=== PATIENT | female | born 1950 | race Caucasian/White ===

== ENCOUNTER 2025-01-04 10:30 | Outpatient (AMB) | payer MEDICARE, SELFPAY ==
[2025-01-04 10:36] VITALS: BP 140/66; PULSE 76; RESP 20; TEMP 37.3; O2SAT 98; BMI 32.0
--- NOTE | 2025-01-04 10:36 | MHC.PC.OV ---
Vital Signs 01/04/25 10:36 Height 5 ft 1.14 in Weight 170 lb 6.4 oz BMI 32.0 BP 140/66 H Blood Pressure Location Lt brachial Position Sitting Respiration 20 Pulse 76 Pulse Source Pulse Oximeter Temp 99.1 F Temp Source Oral Pulse Oximetry (%) 98 Oxygen Delivery Method Room Air Intake Visit Reasons: establish care HTN, cholesterol, thyroid Intake Note: Patient is a new patient here to establish care. Pt has medical records in-hand, from previous PCP. Cigar Head Puncher Required: No Accompanied by: Self / Same As Patient Allergies No Known Allergies Allergy (Verified 01/04/25 11:10) Medication List - Last Reconciled 01/04/25 by MARIA ISABEL Au alendronate 70 mg PO QWEEK hydrochlorothiazide 12.5 mg PO Q OTHER DAY losartan 50 mg PO DAILY rosuvastatin 40 mg PO DAILY Tobacco use date assessed: 01/04/25 Fall risk assessment: 1 Fall in past year Last assessed Fall Risk: 01/04/25 Dental Screening Dental Screen Date: 01/04/25 Did you have a dental visit in the last 12 months?: Yes Did you have a dental problem in the last 6 months where you did not have access to dental care?: No Was dental information given to patient?: Patient has dentist HPI establish care HTN, cholesterol, thyroid HPI Details The patient is a 74 year old female presenting to establish care Patient moved from [place] couple of months ago and needs to be connected with new providers Previous PCP: Dr. Mandy Shepherd Last visit: 2022-summer Last PE: Specialist: Endocrinology, rheumaologist OBGYN: Past medical history: osteoporosis (knees are hurting) lateral epicondylitis,left elbow, polyosteoarthrisit, familial hypercholesterolemia, Essential primary hypertension, hx right hip replacement Medications: Family HX: Mother (rheumatoid arthritis) father (HTN) Problem: The patient reports Bilateral Thyroid nodules-reports 1-2 years US with fine needle aspiration will refer to endocrinology The patient has history of osteoporosis and is on alendronate 70 mg p.o. q.week Her next DEXA scan is due after 04/07/2025 Colonoscopy was completed 2022-reports that she was told that she does not need to complete this again, similarly, she had her last Pap smear and mammogram done in 2022 History of polyosteoarthritis- complaints of left thumb, bilateral knee pain depending on the day. Reports that she had steroids shot in her left wrist before. She currently has been taking one extra strength Tylenol intermittently. Reports trying lidocaine without any relief. Denies chest pain, shortness of breath, heart palpitation, dizziness or lightheadedness Denies any change in bowel habits or any urinary symptoms PFSH Medical History (Updated 01/07/25 @ 19:03 by MARIA ISABEL Au) Polyarticular osteoarthritis High cholesterol Age related osteoporosis Essential (primary) hypertension Surgical History (Updated 01/04/25 @ 11:51 by MARIA ISABEL Au) H/O hammer toe correction H/O carpal tunnel repair H/O cataract removal with insertion of prosthetic lens H/O myomectomy H/O parathyroidectomy History of right hip replacement Family History (Updated 01/04/25 @ 11:00 by Samreen Gibson [facility]) Mother Rheumatoid arthritis Hypotension Father Hypertension Myocardial infarction Social History Household Members Other:: Adopted [facility] Are you a primary rn care transition to a significant other at home: Yes Do you presently have visiting nurse or other home services: No 75 years or older and lives alone: No Alcohol intake: never Patient Tobacco Use Status: Never used Tobacco e-Cigarette/Vaping Use: Never Used service: No Current occupational status: retired Cognitive needs: No Hearing needs: No Vision needs: Yes Questionnaire PHQ-9 Over the last 2 weeks, how often have you been bothered by any of the following problems? 1. Little interest or pleasure in doing things: not at all 2. Feeling down, depressed, or hopeless: not at all 3. Trouble falling or staying asleep, or sleeping too much: not at all 4. Feeling tired or having little energy: not at all 5. Poor appetite or overeating: not at all 6. Feeling bad about yourself - or that you are a failure or have let yourself or your family down: not at all 7. Trouble concentrating on things, such as reading the newspaper or watching television: not at all 8. Moving or speaking so slowly that other people could have noticed. Or the opposite - being so fidgety or restless that you have been moving around a lot more than usual: not at all 9. Thoughts that you would be better off or of hurting yourself in some way: not at all Total score: 0 Depression Screening Interpretation: Negative Depression Screening Done: Yes 98939 - PHQ-9 Billing: Yes Source: Developed by Drs. Zane oSsa, Lucretia Sierra, Ruddy López and colleagues, with an educational dolores from [employer]. Thrive Questionnaire Date Thrive assessed: 01/04/25 I am a: Patient What is your living situation today?: I have a steady place to live Within the past 12 months, did the food you bought not last and you didn't have the money to get more?: Never true Within the past 12 months, did you worry whether your food would run out before you got money to buy more?: Never true Do you have trouble paying for medicines?: No Do you have trouble getting transportation to medical appointments?: No Do you have trouble paying your heating and electricity bill?: No Do you have trouble taking care of your child, family member or friend?: I choose not to answer this question Do you have trouble with day-to-day activities such as bathing, preparing meals, shopping, managing finances, etc.?: No Are you currently unemployed and looking for a job?: No Are you interested in more education?: No Please select the resources that you would like help with: Transportation and Care for elder or disabled Currently or been in a relationship where the following occur: No concerns reported THRIVE Score: 0 AUDIT C Alcohol Use Questionnaire (AUDIT-C) 1. How often do you have a drink containing alcohol?: Never 3. How often do you have six or more drinks on one occasion?: Never Total Score: 0 JOSE-7 AMB Questionnaire JOSE-7 Date JOSE - 7 assessed: 01/04/25 Feeling nervous, anxious, or on edge: 0 = Not at all Not being able to stop or control worryin = Not at all Worrying too much about different things: 0 = Not at all Trouble relaxin = Not at all Being so restless that it is hard to sit still: 0 = Not at all Becoming easily annoyed or irritable: 0 = Not at all Feeling afraid as if something awful might happen: 0 = Not at all Total JOSE-7 score (0-4 normal; 5-9 mild; 10-14 moderate; 15-21 severe): 0 Source: Developed by Drs. Znae Sosa, Lucretia Sierra, Ruddy López and colleagues, with an educational dolores from [employer]. JOSE-7 Assessment Billing JOSE-7 Assessment Tool: JOSE-7 Assessment 02224 Review of Systems Const Denies headache(s) Eyes Denies loss of vision ENT Denies vertigo, Denies dizziness, Denies headache(s) and Denies sore throat Card Denies chest pain, Denies leg edema and Denies lightheadedness Resp Denies cough, Denies hemoptysis and Denies wheezing GI Denies abdominal pain, Denies melena, Denies constipation, Denies diarrhea and Denies vomiting Denies urinary frequency, Denies dysuria and Denies urinary urgency Musc Reports arthralgias (Bilateral knee, left risk and thumb, left elbow), Reports joint swelling (mild swelling in finger joints), Reports muscle cramps (right upper thigh), Denies numbness and Denies tingling Neuro Denies Abnormal speech present, Denies behavioral changes, Denies vertigo, Denies dizziness, Denies headache(s), Denies loss of vision, Denies memory loss, Denies numbness and Denies tingling Psych Denies anxiety, Denies behavioral changes, Denies depression, Denies memory loss and Denies panic attacks Anurag/Lymph Denies easy bleeding and Denies easy bruising Aller/Immun Denies wheezing Physical exam (Primary Care) Vital Signs: Last Vital Signs Temp 99.1 F 01/04/25 10:36 Pulse 76 01/04/25 10:36 Resp 20 01/04/25 10:36 BP 140/66 H 01/04/25 10:36 Pulse Ox 98 01/04/25 10:36 Oxygen Delivery Method Room Air 01/04/25 10:36 BMI result Body Mass Index 32.0 Tobacco/Smoking Status: Tobacco use Status Tobacco use date assessed 01/04/25 01/04/25 11:05 Patient Tobacco Use Status Never used Tobacco 01/04/25 11:05 e-Cigarette/Vaping Use Never Used 01/04/25 11:05 PHQ-9: PHQ-9 Score PHQ-9: Total score 0 01/04/25 11:17 Depression Screening Interpretation: Negative Thrive Assessment: Date of Thrive Assessment Date Thrive assessed 01/04/25 01/04/25 11:05 Currently or been in a relationship where the following occur: No concerns reported Const General: healthy appearing, no acute distress, alert and awake Nutritional Appearance: well nourished Orientation/consciousness: oriented to person, oriented to place and oriented to time HENMT Ears: TM's normal bilaterally General nose exam: Normal nasal mucous membranes and turbinates present Eyes Conjunctivae: conjunctivae normal Sclerae: sclerae normal Pupils: Equal, round and reactive pupils present Neck Neck: Yes no lymphadenopathy and Yes no JVD Thyroid: Thyroid normal Carotids: no bruits Resp Effort & Inspection: normal respiratory effort and not tachypneic Auscultation: no crackles, no rales, no rhonchi and no wheezes Cardio Rate: regular rate Rhythm: regular rhythm Heart sounds: no murmurs and normal S1 and S2 GI Palpation (GI): Soft to palpation, nontender, no hepatomegaly and no splenomegaly Auscultation: normal bowel sounds General: Yes no CVA tenderness Back/Spine/Pelvis Back: no CVA tenderness Cervical Spine: No cervical ROM normal Thoracic/Lumbar Spine: No thoracic spinal tenderness and No lumbar spinal tenderness Skin General skin exam: no rashes or lesions noted and dry skin Neuro General: oriented to person, oriented to place and oriented to time Cranial nerves: Yes Equal, round and reactive pupils present Speech: No Abnormal speech present Gait exam (Neuro): Normal gait present Motor exam (neuro): no tremor noted Extrem General: Yes capillary refill normal, Yes no pedal edema and Yes no calf tenderness Right upper extremity: full ROM Left upper extremity: full ROM and elbow/forearm (left elbow tenderness) Right lower extremity: full ROM and knee Details: normal ROM; no tenderness and no swelling; no edema Left lower extremity: full ROM and knee Details: normal ROM; no tenderness and no swelling; no edema Psych Mental Status: mental status grossly normal Speech and movement: Normal speech and movement present Affect: normal affect Attitude: cooperative Thought process: Normal thought process present Coding Level of Care Code New Pt Level 4 (96897) Diagnoses Thyroid nodule E04.1 Essential (primary) hypertension I10 Age-related osteoporosis without current pathological fracture M81.0 Presence of current pathological fracture: without current pathological fracture Polyarticular osteoarthritis M15.9 Additional Codes JOSE-7 Assessment Billing - JOSE-7 Assessment Tool: JOSE-7 Assessment 98322 ([id number]) PHQ-9 - 81133 - PHQ-9 Billing: Yes ([id number]) Time Spent (min) 39 Assessment & Plan Assessment & Plan (1) Thyroid nodule: Code(s): E04.1 - Nontoxic single thyroid nodule Category: Medical Plan: The patient reports Bilateral Thyroid nodules-reports 1-2 years US with fine needle aspiration will refer to endocrinology (2) Essential (primary) hypertension: Code(s): I10 - Essential (primary) hypertension Category: Medical Plan: Encouraged DASH diet and activity as tolerated Continue hydrochlorothiazide 12.5 mg Q other day, losartan 50 mg daily (3) Age related osteoporosis: Code(s): M81.0 - Age-related osteoporosis without current pathological fracture Category: Medical Qualifiers: Presence of current pathological fracture: without current pathological fracture Qualified Code(s): M81.0 - Age-related osteoporosis without current pathological fracture Plan: Maintain weight-bearing exercise (e.g., walking at least 30 min 3 times a weak); consider resistance training 2 times a weak Avoid excess phosphate (e.g., carbonated beverages) Prevention of falls Daily probiotic supplement (lactobacillus reuteri) can decrease bone loss) Continue alendronate 70 mg q.week (4) Polyarticular osteoarthritis: Code(s): M15.9 - Polyosteoarthritis, unspecified Category: Medical Plan: Set realistic goals (e.g., start walking 10 min 3 times a wk with eventual goal to be 30 min 3 times a wk Weight loss of at 10%, if indicated Rest joint 12 to 24 hr with acute pain, then resume ROM and exercise (especially aquatic exercise) Consider PT for suggestion of specific aerobic and strengthening exercises and OT for help with ADLs May use of items such as cane, knee brace, thumb splint Continue Tylenol OTC PRN Orders: Orders Lipid Panel 01/04/25 E04.1 - Nontoxic single thyroid nodule, E78.00 - Pure hypercholesterolemia, unspecified, I10 - Essential (primary) hypertension, M81.0 - Age-related osteoporosis without current pathological fracture, R12 - Heartburn Complete Blood Count Auto Diff 01/04/25 E04.1 - Nontoxic single thyroid nodule, E78.00 - Pure hypercholesterolemia, unspecified, I10 - Essential (primary) hypertension, M81.0 - Age-related osteoporosis without current pathological fracture, R12 - Heartburn Comprehensive [place]. Panel Fast 01/04/25 E04.1 - Nontoxic single thyroid nodule, E78.00 - Pure hypercholesterolemia, unspecified, I10 - Essential (primary) hypertension, M81.0 - Age-related osteoporosis without current pathological fracture, R12 - Heartburn Vitamin D 25-OH Total 01/04/25 E04.1 - Nontoxic single thyroid nodule, E78.00 - Pure hypercholesterolemia, unspecified, I10 - Essential (primary) hypertension, M81.0 - Age-related osteoporosis without current pathological fracture, R12 - Heartburn UA CC w/rflx Micro + Cult 01/04/25 E04.1 - Nontoxic single thyroid nodule, E78.00 - Pure hypercholesterolemia, unspecified, I10 - Essential (primary) hypertension, M81.0 - Age-related osteoporosis without current pathological fracture, R12 - Heartburn TSH reflex Free T4 01/04/25 E04.1 - Nontoxic single thyroid nodule, E78.00 - Pure hypercholesterolemia, unspecified, I10 - Essential (primary) hypertension, M81.0 - Age-related osteoporosis without current pathological fracture, R12 - Heartburn Medications: New losartan 50 mg PO DAILY 30 days 30 tabs 3RF hydrochlorothiazide 12.5 mg PO Q OTHER DAY 30 days 15 tabs 3RF omeprazole 20 mg PO DAILY 60 caps 0RF R12 - Heartburn alendronate 70 mg PO QWEEK 30 days 5 tabs 3RF M81.0 - Age-related osteoporosis without current pathological fracture
== END 2025-01-04 12:00 | disposition home or self-care (01) ==
LOC: HO.HMCH 10:31
DX: E04.1 Nontoxic single thyroid nodule (principal); I10 Essential (primary) hypertension; M81.0 Age-related osteoporosis without current pathological fracture; M15.9 Polyosteoarthritis, unspecified

== ENCOUNTER → 2025-01-04 10:30 | Outpatient (BNVA) | payer MEDICARE, SELFPAY | DX: E04.1 Nontoxic single thyroid nodule (principal); I10 Essential (primary) hypertension; M81.0 Age-related osteoporosis without current pathological fracture; M15.9 Polyosteoarthritis, unspecified | CPT/HCPCS: 96127; 99202 ==

== ENCOUNTER 2025-02-10 09:57 | Outpatient (REF) | payer MEDICARE, SELFPAY ==
[2025-02-10 12:16] LABS: Free T4 (Free Thyroxine) 0.99 ng/dL (0.71-1.85); Thyroid Stimulating Hormone 0.87 uIU/mL (0.32-4.0)
== END 2025-02-10 09:58 | disposition home or self-care (01) ==
LOC: HO.LAB 09:57
PROVIDERS: Visit Provider Student in an Organized Health Care Education/Training Program
DX: E04.2 Nontoxic multinodular goiter (principal)
CPT/HCPCS: 36415; 84439; 84443; 99202

== ENCOUNTER 2025-02-10 09:57 | Outpatient (AMB) | payer MEDICARE, SELFPAY ==
[2025-02-10 10:01] VITALS: BP 138/68; PULSE 77; O2SAT 98; BMI 32.5
--- NOTE | 2025-02-10 10:01 | MHC.OFFVIS ---
Vital Signs 02/10/25 10:01 Height 5 ft 1.14 in Weight 172 lb 13.478 oz BMI 32.5 BP 138/68 Blood Pressure Location Rt brachial Position Sitting Pulse 77 Pulse Source Pulse Oximeter Pulse Oximetry (%) 98 Oxygen Delivery Method Room Air Intake Visit Reasons: Nontoxic single thyroid nodule Intake Note: New patient present today for Nontoxic single thyroid nodule. Devops Solutions Architect Required: No Accompanied by: Self / Same As Patient Allergies No Known Allergies Allergy (Verified 02/10/25 10:05) Medication List - Last Reconciled 02/10/25 by Sara Hernandez MD alendronate 70 mg PO QWEEK 30 days hydrochlorothiazide 12.5 mg PO Q OTHER DAY 30 days losartan 50 mg PO DAILY 30 days omeprazole 20 mg PO DAILY rosuvastatin 40 mg PO DAILY 90 days HPI Comments Details: 74-year-old female here today for initial evaluation of history of nontoxic multinodular goiter. Moved here from [place] Oct 18, now settled here. Has history of thyroid nodules diagnosed in 2017 at the time that she was undergoing evaluation for hyperparathyroidism and s/p lower right parathyroid gland resection 08/2018. Labs patient brought in from [facility] from 2023 showed normal calcium levels and she is seeing PCP for osteoporosis, on fosamax. For the thyroid nodules, she has been monitored with surveillance US . Was following with Endocrinology in [facility] thyroid report reviewed from : RUP 1.3x0.8x0.9 cm solid hypoechoic nodule with echogenic foci RMP 0.5 x 0.3 x 0.5 cm solid hypoechoic nodule RLP 0.6 x 0.4 x 0.6 cm solid hypoechoic nodule LMP 2.9 x 1.5 x 1.9 cm heterogenous nodule with cystic components. 08/25/23 FNA biopsy of the LLP 3.4 cm nodule and RUP 1.1 cm nodule both benign Gibson 2. Patient currently denies heat or cold intolerance, diarrhea or constipation, hair loss, palpitation, anxiety, weight changes, mood changes, low energy, changes in appearance of eyes or vision changes, tremors, increased diaphoresis or dry skin. ? Patient denies any difficulty swallowing, pain on swallowing or voice changes or difficulty breathing. Patient denies any history of childhood neck radiation. Denies having ever used lithium, amiodarone or biotin supplements. Patient denies any family history of thyroid cancer. Mother : history of MNG Physical exam General: sitting comfortably in no acute distress HEENT: normocephalic/atraumatic, EOM intact, moist oral mucosa Neck: supple, palpable 2 cm left sided nodule Cardiac: normal heart sounds Pulm: normal breath sounds B/L, no added breath sounds Abd: not distended, no tenderness Extremities: no edema, no signs of myxedema Neuro: AAO x3, Speech: normal, no facial droop, moving all 4 extremities Patient brought in reports from [place] for review in print Info deducted US thyroid report reviewed from : RUP 1.3x0.8x0.9 cm solid hypoechoic nodule with echogenic foci RMP 0.5 x 0.3 x 0.5 cm solid hypoechoic nodule RLP 0.6 x 0.4 x 0.6 cm solid hypoechoic nodule LMP 2.9 x 1.5 x 1.9 cm heterogenous nodule with cystic components. 08/25/23 FNA biopsy report of the LLP 3.4 cm nodule and RUP 1.1 cm nodule both benign Gibson 2. [facility] Medical History (Updated 02/10/25 @ 10:36 by Sara Hernandez MD) Multinodular goiter Polyarticular osteoarthritis High cholesterol Age related osteoporosis Essential (primary) hypertension Surgical History H/O hammer toe correction H/O carpal tunnel repair H/O cataract removal with insertion of prosthetic lens H/O myomectomy H/O parathyroidectomy History of right hip replacement Family History Mother Rheumatoid arthritis Hypotension Father Hypertension Myocardial infarction Social History Household Members Other:: Adopted Son Housing: Condominium Are you a primary childcare worker to a significant other at home: Yes Do you presently have visiting nurse or other home services: No 75 years or older and lives alone: No Alcohol intake: never Patient Tobacco Use Status: Never used Tobacco e-Cigarette/Vaping Use: Never Used service: No Current occupational status: retired Cognitive needs: No Hearing needs: No Vision needs: Yes Physical Exam Vital Signs: Last Vital Signs Pulse 77 02/10/25 10:01 BP 138/68 02/10/25 10:01 Pulse Ox 98 02/10/25 10:01 Oxygen Delivery Method Room Air 02/10/25 10:01 BMI result Body Mass Index 32.5 Assessment & Plan Assessment & Plan (1) Multinodular goiter: Code(s): E04.2 - Nontoxic multinodular goiter Category: Medical Plan: 74-year-old female with no personal history of head or neck radiation with a family history of thyroid cancer who is coming in today for initial evaluation of nontoxic multinodular goiter. She was diagnosed with thyroid nodules in 2017 when she was undergoing evaluation for hyperparathyroidism status post right inferior parathyroid gland resection in August 2018. Subsequently thyroid nodules have been monitored with surveillance ultrasounds. She brought in her most recent thyroid ultrasound report from June 2023, I reviewed the report which showed a right upper pole 1.3 cm solid hypoechoic TR 5 category nodule with punctate echogenic foci , a right midpole subcentimeter solid hypoechoic nodule another right lower pole subcentimeter solid hypoechoic nodule, and a left midpole heterogenous nodule with cystic components measuring 2.9 next 1.5 X1.9 cm. She underwent FNA biopsy in July 2023 of the left mid/lower pole 3.4 cm nodule in the right upper pole 1.1 cm nodule which both came back as benign, Gibson category 2. She is here today to establish care. No compressive symptoms. No recent TFTs in the chart. I explained that it is common to have thyroid nodules. About 95% of the time these nodules are benign. However if the nodule is > 1 cm in size or suspicious on ultrasound then a fine need aspiration biopsy is recommended. At this point we will repeat an ultrasound of her thyroid in follow up with her to discuss results to see if any of her previous nodules have undergone significant change in size and meet criteria for FNA. Otherwise we will continue to do surveillance ultrasounds. Plan: -ordered TSH and free T4 to be done today -ordered ultrasound of the thyroid to be done prior to follow up -follow up in 6 weeks to discuss results Plan I spent 45 minutes in reviewing the record, seeing the patient and documenting in the medical record. Orders: Orders US thyroid Today E04.2 - Nontoxic multinodular goiter Free T4 (Free Thyroxine) Today E04.2 - Nontoxic multinodular goiter Thyroid Stimulating Hormone Today E04.2 - Nontoxic multinodular goiter Patient Instructions: Do blood work today Do ultrasound of the thyroid ,someone will call you to schedule this Follow up in 6 weeks to discuss results Coding Level of Care Code New Pt Level 4 (86207) Diagnoses Multinodular goiter E04.2 Time Spent (min) 45
== END 2025-02-10 10:46 | disposition home or self-care (01) ==
LOC: HO.ENCR 09:58
PROVIDERS: Visit Provider Student in an Organized Health Care Education/Training Program
DX: E04.2 Nontoxic multinodular goiter (principal)
CPT/HCPCS: 99204

== ENCOUNTER 2025-03-23 09:39 | Outpatient (REF) | payer MEDICARE, SELFPAY ==
[2025-03-23 10:00] LABS: MANUAL DIFF FLAG NO
[2025-03-23 10:17] LABS: Basophils Absolute Auto 0.1 X10*3/uL (0.0-0.2); Basophils Percent Auto 0.8 % (0-2); Eosinophils Absolute Auto 0.3 X10*3/uL (0.0-0.4); Eosinophils Percent Auto 4.2 % (0-4); Hematocrit 43.7 % (37.0-47.0); Hemoglobin 14.4 g/dl (12.0-16.0); Imm Gran Abs Auto 0.02 X10*3/uL (0.00-0.03); Imm Gran Pct Auto 0.3 % (0.0-0.4); Lymphocytes Percent Auto 25.6 % (20-40); Mean Corpuscular Hemoglobin 29.4 pg (27.0-33.0); Mean Corpuscular Volume 89.2 fL (80.0-98.0); Mean Platelet Volume 9.9 fL (9.4-12.3); Monocytes Absolute Auto 0.5 X10*3/uL (0.1-1.2); Monocytes Percent Auto 6.5 % (2-11); Neutrophils Absolute Auto 4.8 x10*3/uL (2.0-8.3); Neutrophils Percent Auto 62.6 % (45-73); Platelet Count 258 X10*3/uL (160-400); White Blood Count 7.7 X10*3/uL (4.8-10.8)
[2025-03-23 10:57] LABS: Alanine Aminotransferase 22 U/L (0-31); Albumin Level 4.3 g/dL (3.5-5.0); Alkaline Phosphatase 40 U/L (39-117); Anion Gap 14 (12-20); Aspartate Amino Transferase 27 U/L (5-31); Bilirubin Total 0.9 mg/dL (0.0-1.0); Blood Urea Nitrogen 18 mg/dL (9-16); Calcium 10.2 mg/dL (8.4-10.2); Carbon Dioxide 25 mmol/L (22-29); Chloride 107 mmol/L (96-108); Cholesterol 184 mg/dL (<200); Estimated Glomerular Filt Rate > 60; Glucose Fasting 102 mg/dL (60-99); HDL Cholesterol 56 mg/dL (>40); LDL Cholesterol Calculated 112 mg/dL (<100); Potassium 4.2 mmol/L (3.3-5.1); Sodium 142 mmol/L (135-145); Total Protein 6.9 g/dL (6.5-8.0); Triglycerides 83 mg/dL (<150)
[2025-03-23 11:03] LABS: TSH reflex Free T4 0.65 uIU/mL (0.32-4.0); Vitamin D 25-OH Total 40.5 ng/mL (>30)
== END 2025-03-23 09:40 | disposition home or self-care (01) ==
LOC: HO.LAB 09:39
DX: E04.1 Nontoxic single thyroid nodule (principal); I10 Essential (primary) hypertension; M81.0 Age-related osteoporosis without current pathological fracture; R12 Heartburn; E78.00 Pure hypercholesterolemia, unspecified
CPT/HCPCS: 36415; 80053; 80061; 82306; 84443; 85025

== ENCOUNTER 2025-03-24 12:44 | Outpatient (REF) | payer MEDICARE, SELFPAY ==
[2025-03-24 12:52] LABS: Appearance Urine Clear; Color Urine Yellow; Glucose Urine UA Negative (Negative); Leukocyte Esterase Urine Large (3+) (Negative); Nitrite Urine Positive (Negative); Specific Gravity - Urine 1.015 (1.005-1.025); UMIC TRIGGER UACC YES; Urine Blood Negative (Negative); Urine Ketones Negative (Negative); Urine Protein Negative (Neg-Trace)
[2025-03-24 12:58] LABS: Bacteria Urine 4+ (None Seen); Hyaline Casts Urine 0-2 /LPF (0-2); RBC Urine 0-2 /HPF (0-2); Squamous Epithelial Cell Urine 0-2 /HPF (0-2); UACC Culture Trigger YES; WBC Urine >50 /HPF (0-5)
== END 2025-03-24 12:45 | disposition home or self-care (01) ==
LOC: HO.LNP 12:44
DX: I10 Essential (primary) hypertension (principal); E04.2 Nontoxic multinodular goiter; M15.9 Polyosteoarthritis, unspecified; Z98.890 Other specified postprocedural states; Z90.89 Acquired absence of other organs; E78.00 Pure hypercholesterolemia, unspecified; M81.0 Age-related osteoporosis without current pathological fracture; R12 Heartburn
CPT/HCPCS: 81001; 87086; 87088; 87186

== ENCOUNTER 2025-04-03 12:37 | Outpatient (REF) | payer MEDICARE, SELFPAY ==
--- NOTE | ~2025-04-03 | US_ITS ---
EXAMINATION: US THYROID HISTORY: E04.2 - Nontoxic multinodular goiter TECHNIQUE: Real-time grayscale ultrasound imaging was performed and images were reviewed. COMPARISON: There are no prior studies available for comparison. FINDINGS: SIZE: The right thyroid lobe measures 4.1 x 1.5 x 1.6 cm. The left thyroid lobe measures 4.6 x 2.3 x 2.6 cm. The isthmus measures 3 mm. FLOW: Flow to the gland is normal. ECHOGENICITY: The echotexture of the gland is heterogeneous. NODULES: Multiple bilateral thyroid nodules are identified as described below: Nodule #: 1 Location: Upper pole of the right thyroid lobe measuring 1.3 x 1.0 x 0.8 cm. Shape: Wider than tall (0 points) Margins: Smooth (0 points) Echotexture: Hypoechoic (2 points) Composition: Mostly solid (2 points) Calcifications: Rim calcification (2 points) Total points: 6 TIRADS: TR4: Moderately suspicious. Nodule #: 2 Location: Midportion of the right thyroid lobe measuring 5 x 3 x 5 mm. Shape: Wider than tall (0 points) Margins: Smooth (0 points) Echotexture: Hypoechoic (2 points) Composition: Mostly solid (2 points) Calcifications: None (0 points) Total points: 4 TIRADS: TR4: Moderately suspicious. Nodule #: 3 Location: Lower pole of the right thyroid lobe measuring 6 x 4 x 5 mm. Shape: Wider than tall (0 points) Margins: Smooth (0 points) Echotexture: Hypoechoic (2 points) Composition: Solid (2 points) Calcifications: None (0 points) Total points: 4 TIRADS: TR4: Moderately suspicious. Nodule #: 4 Location: Lower pole of the left thyroid lobe measuring 2.9 x 1.5 x 1.9 cm. Shape: Wider than tall (0 points) Margins: Smooth (0 points) Echotexture: Hypoechoic (2 points) Composition: Mostly solid (2 points) Calcifications: None (0 points) Total points: 4 TIRADS: TR4: Moderately suspicious. US/US thyroid IMPRESSION: Multiple bilateral thyroid nodules as described. According to ACR TI-RADS guidelines below, fine-needle aspiration of the dominant nodule at the lower pole of the left thyroid lobe (#4 above) is recommended. ACR TI-RADS Guidelines TR1 (0 points): Benign, No follow-up or biopsy required TR2 (2 points): Not Suspicious, No biopsy or follow up indicated TR3 (3 points): Mildly Suspicious, FNA if >= 2.5 cm, Follow if >= 1.5 cm TR4 (4-6 points): Moderately Suspicious, FNA if >= 1.5 cm, Follow if >= 1.0 cm TR5 (>=7 points): Highly Suspicious, FNA if >= 1.0 cm, Follow if >= 0.5 cm Electronically signed by: Zane Altamirano MD 04/03/2025 02:12 PM EDT
== END 2025-04-03 12:38 | disposition home or self-care (01) ==
LOC: HO.US 12:37
PROVIDERS: Visit Provider Student in an Organized Health Care Education/Training Program
DX: E04.2 Nontoxic multinodular goiter (principal)
CPT/HCPCS: 76536

== ENCOUNTER → 2025-04-03 12:40 | Outpatient (BNV) | payer MEDICARE, SELFPAY | PROVIDERS: Visit Provider Radiology Diagnostic Radiology | DX: E04.2 Nontoxic multinodular goiter (principal) | CPT/HCPCS: 76536 ==

== ENCOUNTER 2025-04-06 09:45 | Outpatient (AMB) | payer MEDICARE, SELFPAY ==
[2025-04-06 09:55] VITALS: BP 124/70; PULSE 75; RESP 18; TEMP 37.1; O2SAT 98; BMI 32.2
--- NOTE | 2025-04-06 09:55 | MHC.PC.OV ---
Vital Signs 04/06/25 09:55 Height 5 ft 1 in Weight 170 lb 3.2 oz BMI 32.2 BP 124/70 Blood Pressure Location Lt brachial Position Sitting Respiration 18 Pulse 75 Pulse Source Pulse Oximeter Temp 98.8 F Temp Source Oral Pulse Oximetry (%) 98 Oxygen Delivery Method Room Air Intake Visit Reasons: htn/hld Pari Mutuel Clerk Required: No Accompanied by: Self / Same As Patient Allergies No Known Allergies Allergy (Verified 04/06/25 10:23) Medication List - Last Reconciled 04/06/25 by MARIA ISABEL Au alendronate 70 mg PO QWEEK 30 days hydrochlorothiazide 12.5 mg PO Q OTHER DAY 30 days losartan 50 mg PO DAILY 30 days omeprazole 20 mg PO DAILY PRN rosuvastatin 40 mg PO DAILY 90 days Tobacco use date assessed: 04/06/25 Fall risk assessment: 1 Fall in past year Last assessed Fall Risk: 04/06/25 Dental Screening Dental Screen Date: 04/06/25 Did you have a dental visit in the last 12 months?: Yes Did you have a dental problem in the last 6 months where you did not have access to dental care?: No Was dental information given to patient?: Yes HPI htn/hld HPI Details The patient is a 74-year-old female presenting with concerns regarding her ongoing chronic conditions and a recent fall. At the time of a routine lab test, she was found to have asymptomatic bacteriuria with E. coli, which was addressed with antibiotics, although she had no history or current urinary tract infection symptoms. She manages her hiatal hernia effectively with as-needed omeprazole and adheres to specific dietary restrictions to avoid triggers. She reports a slightly elevated cholesterol level, persistent for some time, with potential genetic links as her father also had hypercholesterolemia. The patient recognizes a link between stress and cholesterol, considering her recent move as a contributing factor. She is proactive in her health maintenance, drinking regular amounts of water and considering increasing her intake. Furthermore, the patient experiences urinary incontinence and is managing this with protective pads. The recent fall has caused concern for her right hip, which has a history of replacement surgery, as well as her right knee, both now experiencing discomfort. The fall was self-managed without medical intervention, and she seeks further evaluation. There is recognition of arthritis in multiple areas, including her thumb and knee, attributed to aging. DEXA scan is due in 03/2025, will order this test for pain. She is going to see her Habilitation Specialist in June, this information will be useful for her examination reports that her hip and knee hurts when she is put weight on them, but not with palpation no discoloration or swelling noted at either right hip or knee due to s/p fall-right hip and knee x-ray ordered to further evaluate no chest pain or sob, dizziness, or heart palpitation no abdominal/change in bowel habits mixed incontinence. reports that this has been going on for year. reports that in [place], they told her that she could have a surgery for this but she has been too busy to entertain the idea, so far. The patient requested a disability placard. 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 Do you presently have visiting nurse or other home services: No 75 years or older and lives alone: No Alcohol intake: never Patient Tobacco Use Status: Never used Tobacco e-Cigarette/Vaping Use: Never Used service: No Current occupational status: retired Cognitive needs: No Hearing needs: No Vision needs: Yes (Reading glasses) Questionnaire Thrive Questionnaire Date Thrive assessed: 04/06/25 I am a: Patient What is your living situation today?: I have a steady place to live Within the past 12 months, did the food you bought not last and you didn't have the money to get more?: Never true Within the past 12 months, did you worry whether your food would run out before you got money to buy more?: Never true Do you have trouble paying for medicines?: No Do you have trouble getting transportation to medical appointments?: No Do you have trouble paying your heating and electricity bill?: No Do you have trouble taking care of your child, family member or friend?: I choose not to answer this question Do you have trouble with day-to-day activities such as bathing, preparing meals, shopping, managing finances, etc.?: No Are you currently unemployed and looking for a job?: No Are you interested in more education?: No Currently or been in a relationship where the following occur: No concerns reported THRIVE Score: 0 AUDIT C Alcohol Use Questionnaire (AUDIT-C) 1. How often do you have a drink containing alcohol?: Never Total Score: 0 Score Reviewed/Action Taken: No JOSE-7 AMB Questionnaire OJSE-7 Date JOSE - 7 assessed: 01/04/25 Source: Developed by Drs. Zane Sosa, Lucretia Sierra, Ruddy López and colleagues, with an educational dolores from [employer]. Review of Systems Const Denies headache(s) Eyes Denies loss of vision ENT Denies vertigo, Denies dizziness, Denies headache(s) and Denies sore throat Card Denies chest pain, Denies leg edema and Denies lightheadedness Resp Denies cough, Denies hemoptysis and Denies wheezing GI Denies abdominal pain, Denies melena, Denies constipation, Denies diarrhea and Denies vomiting Denies urinary frequency, Denies dysuria, Reports urinary incontinence and Denies urinary urgency Musc Reports arthralgias (right hip and knee), Denies joint swelling, Denies numbness and Denies tingling Neuro Denies vertigo, Denies dizziness, Denies headache(s), Denies loss of vision, Denies memory loss, Denies numbness and Denies tingling Psych Denies anxiety, Denies depression, Denies memory loss and Denies panic attacks Anurag/Lymph Denies easy bleeding and Denies easy bruising Aller/Immun Denies wheezing Physical exam (Primary Care) Vital Signs: Last Vital Signs Temp 98.8 F 04/06/25 09:55 Pulse 75 04/06/25 09:55 Resp 18 04/06/25 09:55 BP 124/70 04/06/25 09:55 Pulse Ox 98 04/06/25 09:55 Oxygen Delivery Method Room Air 04/06/25 09:55 BMI result Body Mass Index 32.2 Tobacco/Smoking Status: Tobacco use Status Tobacco use date assessed 04/06/25 04/06/25 10:03 Patient Tobacco Use Status Never used Tobacco 04/06/25 10:03 e-Cigarette/Vaping Use Never Used 04/06/25 10:03 Thrive Assessment: Date of Thrive Assessment Date Thrive assessed 04/06/25 04/06/25 10:03 Currently or been in a relationship where the following occur: No concerns reported Const General: healthy appearing, no acute distress, alert and awake Nutritional Appearance: well nourished Orientation/consciousness: oriented to person, oriented to place and oriented to time HENMT Ears: TM's normal bilaterally General nose exam: Normal nasal mucous membranes and turbinates present Eyes Conjunctivae: conjunctivae normal Sclerae: sclerae normal Pupils: Equal, round and reactive pupils present Neck Neck: Yes no lymphadenopathy and Yes no JVD Thyroid: Thyroid normal Carotids: no bruits Resp Effort & Inspection: normal respiratory effort and not tachypneic Auscultation: no crackles, no rales, no rhonchi and no wheezes Cardio Rate: regular rate Rhythm: regular rhythm Heart sounds: no murmurs and normal S1 and S2 GI Palpation (GI): Soft to palpation, nontender, no hepatomegaly and no splenomegaly Auscultation: normal bowel sounds General: Yes no CVA tenderness Back/Spine/Pelvis Back: no CVA tenderness Thoracic/Lumbar Spine: No lumbar spinal tenderness Skin General skin exam: no rashes or lesions noted and dry skin Neuro General: oriented to person, oriented to place and oriented to time Cranial nerves: Yes Equal, round and reactive pupils present Gait exam (Neuro): Normal gait present Motor exam (neuro): no tremor noted Extrem Right upper extremity: full ROM Left upper extremity: full ROM Right lower extremity: full ROM, hip/thigh Details: no tenderness and no swelling and knee Details: no tenderness and no swelling; no edema Left lower extremity: full ROM; no edema Psych Mental Status: mental status grossly normal Speech and movement: Normal speech and movement present Affect: normal affect Attitude: cooperative Thought process: Normal thought process present Results Reviewed Results Reviewed: Laboratory Tests 02/10/25 03/23/25 03/24/25 11:13 09:58 05:55 WBC 7.7 RBC 4.90 Hgb 14.4 Hct 43.7 MCV 89.2 MCH 29.4 MCHC 33.0 RDW 13.0 Plt Count 258 MPV 9.9 Immature Gran % (Auto) 0.3 Sodium 142 Potassium 4.2 Chloride 107 Carbon Dioxide 25 Anion Gap 14 BUN 18 H Creatinine 0.66 Estimated GFR > 60 Fasting Glucose 102 H Calcium 10.2 Total Bilirubin 0.9 AST 27 ALT 22 Alkaline Phosphatase 40 Total Protein 6.9 Albumin 4.3 Triglycerides 83 Cholesterol 184 LDL Cholesterol, Calc 112 H HDL Cholesterol 56 25-OH Vitamin D Total 40.5 TSH 0.87 0.65 Free T4 0.99 Urine Color Yellow Urine Appearance Clear Urine pH 6.0 Ur Specific [place] 1.015 Urine Protein Negative Urine Glucose (UA) Negative Urine Ketones Negative Urine Blood Negative Urine Nitrite Positive H Ur Leukocyte Esterase Large (3+) H Urine RBC 0-2 Urine WBC >50 H Ur Squamous Epith Cells 0-2 Urine Bacteria 4+ Hyaline Casts 0-2 Coding Level of Care Code Est Pt Level 4 (88900) Diagnoses Essential (primary) hypertension I10 High cholesterol E78.00 Age-related osteoporosis without current pathological fracture M81.0 Presence of current pathological fracture: without current pathological fracture Heartburn R12 Right hip pain M25.551 Right knee pain, unspecified chronicity M25.561 Chronicity: unspecified Urinary tract infection without hematuria, site unspecified N39.0 Urinary tract infection type: site unspecified Hematuria presence: without hematuria Time Spent (min) 39 Assessment & Plan Assessment & Plan (1) Essential (primary) hypertension: Code(s): I10 - Essential (primary) hypertension Category: Medical Plan: Blood pressure 124/70 within goal Reinforced low-salt diet Continue hydrochlorothiazide 12.5 mg Q other day, losartan 50 mg daily (2) High cholesterol: Code(s): E78.00 - Pure hypercholesterolemia, unspecified Category: Medical Plan: Total 184, Tri 83, LDL 112, HDL 56 Reinforced low-cholesterol diet Continue rosuvastatin 40 mg daily Encouraged fish oil or Co Q10 supplements We will recheck lipid panel in 3 months (3) Age related osteoporosis: Code(s): M81.0 - Age-related osteoporosis without current pathological fracture Category: Medical Qualifiers: Presence of current pathological fracture: without current pathological fracture Qualified Code(s): M81.0 - Age-related osteoporosis without current pathological fracture Plan: Patient is due for DEXA scan in March of this year (2024). She has an upcoming appointment with Rheumatology in June,. Dexa scan ordered Continue alendronate 70 mg q.week (4) Heartburn: Code(s): R12 - Heartburn Category: Medical Plan: complicated by haital hernia Reinforced dietary restrictions, allowing yourself at least 3 hours after eating before lying down Continue omeprazole 20 mg daily p.r.n. (5) Right hip pain: Code(s): M25.551 - Pain in right hip Category: Medical Plan: Status post right knee replacement in [place] Recent fall and ongoing pain in right hip when bearing weight No pain to palpation, positive range of motion Right hip x-ray ordered to further evaluate handicap placard form filled out for patient (6) Right knee pain: Code(s): M25.561 - Pain in right knee Category: Medical Qualifiers: Chronicity: unspecified Qualified Code(s): M25.561 - Pain in right knee Plan: For right knee pain, history of osteoarthritis, however pain increased since fall. Right knee x-ray ordered to further evaluate. (7) UTI (urinary tract infection): Code(s): N39.0 - Urinary tract infection, site not specified Category: Medical Qualifiers: Urinary tract infection type: site unspecified Hematuria presence: without hematuria Qualified Code(s): N39.0 - Urinary tract infection, site not specified Plan: Urine positive for Escherichia coli recently and she was treated with Macrobid. Remains asymptomatic. Chronic urinary incontinence. Orders: Orders Complete Blood Count Auto Diff 3 Months E04.2 - Nontoxic multinodular goiter, M15.9 - Polyosteoarthritis, unspecified, Z98.890 - Other specified postprocedural states, Z90.89 - Acquired absence of other organs, E78.00 - Pure hypercholesterolemia, unspecified, E04.1 - Nontoxic single thyroid nodule, I10 - Essential (primary) hypertension, M81.0 - Age-related osteoporosis without current pathological fracture, R12 - Heartburn Lipid Panel 3 Months E04.2 - Nontoxic multinodular goiter, M15.9 - Polyosteoarthritis, unspecified, Z98.890 - Other specified postprocedural states, Z90.89 - Acquired absence of other organs, E78.00 - Pure hypercholesterolemia, unspecified, E04.1 - Nontoxic single thyroid nodule, I10 - Essential (primary) hypertension, M81.0 - Age-related osteoporosis without current pathological fracture, R12 - Heartburn TSH reflex Free T4 3 Months E04.2 - Nontoxic multinodular goiter, M15.9 - Polyosteoarthritis, unspecified, Z98.890 - Other specified postprocedural states, Z90.89 - Acquired absence of other organs, E78.00 - Pure hypercholesterolemia, unspecified, E04.1 - Nontoxic single thyroid nodule, I10 - Essential (primary) hypertension, M81.0 - Age-related osteoporosis without current pathological fracture, R12 - Heartburn Free T4 (Free Thyroxine) 3 Months E04.2 - Nontoxic multinodular goiter, M15.9 - Polyosteoarthritis, unspecified, Z98.890 - Other specified postprocedural states, Z90.89 - Acquired absence of other organs, E78.00 - Pure hypercholesterolemia, unspecified, E04.1 - Nontoxic single thyroid nodule, I10 - Essential (primary) hypertension, M81.0 - Age-related osteoporosis without current pathological fracture, R12 - Heartburn XR hip RT min 2V 12/ M25.551 - Pain in right hip Comprehensive [place]. Panel Fast 3 Months E04.2 - Nontoxic multinodular goiter, M15.9 - Polyosteoarthritis, unspecified, Z98.890 - Other specified postprocedural states, Z90.89 - Acquired absence of other organs, E78.00 - Pure hypercholesterolemia, unspecified, E04.1 - Nontoxic single thyroid nodule, I10 - Essential (primary) hypertension, M81.0 - Age-related osteoporosis without current pathological fracture, R12 - Heartburn UA CC w/rflx Micro + Cult 3 Months E04.2 - Nontoxic multinodular goiter, M15.9 - Polyosteoarthritis, unspecified, Z98.890 - Other specified postprocedural states, Z90.89 - Acquired absence of other organs, E78.00 - Pure hypercholesterolemia, unspecified, E04.1 - Nontoxic single thyroid nodule, I10 - Essential (primary) hypertension, M81.0 - Age-related osteoporosis without current pathological fracture, R12 - Heartburn Vitamin D 25-OH Total 3 Months E04.2 - Nontoxic multinodular goiter, M15.9 - Polyosteoarthritis, unspecified, Z98.890 - Other specified postprocedural states, Z90.89 - Acquired absence of other organs, E78.00 - Pure hypercholesterolemia, unspecified, E04.1 - Nontoxic single thyroid nodule, I10 - Essential (primary) hypertension, M81.0 - Age-related osteoporosis without current pathological fracture, R12 - Heartburn Hemoglobin A1c 3 Months E04.2 - Nontoxic multinodular goiter, M15.9 - Polyosteoarthritis, unspecified, Z98.890 - Other specified postprocedural states, Z90.89 - Acquired absence of other organs, E78.00 - Pure hypercholesterolemia, unspecified, E04.1 - Nontoxic single thyroid nodule, I10 - Essential (primary) hypertension, M81.0 - Age-related osteoporosis without current pathological fracture, R12 - Heartburn XR knee RT 3V 04/06/25 M25.561 - Pain in right knee Medications: Changed From omeprazole 20 mg PO DAILY 60 caps 0RF R12 - Heartburn To omeprazole 20 mg PO DAILY PRN R12 - Heartburn
== END 2025-04-06 10:58 | disposition home or self-care (01) ==
LOC: HO.HMCH 09:46
DX: I10 Essential (primary) hypertension (principal); E78.00 Pure hypercholesterolemia, unspecified; M81.0 Age-related osteoporosis without current pathological fracture; R12 Heartburn; M25.551 Pain in right hip; M25.561 Pain in right knee; N39.0 Urinary tract infection, site not specified

== ENCOUNTER → 2025-04-06 09:45 | Outpatient (BNVA) | payer MEDICARE, SELFPAY | DX: I10 Essential (primary) hypertension (principal); E78.00 Pure hypercholesterolemia, unspecified; M81.0 Age-related osteoporosis without current pathological fracture; R12 Heartburn; M25.551 Pain in right hip; M25.561 Pain in right knee; N39.0 Urinary tract infection, site not specified | CPT/HCPCS: 99212 ==

== ENCOUNTER 2025-04-25 08:51 | Outpatient (AMB) | payer MEDICARE, SELFPAY ==
[2025-04-25 08:54] VITALS: BP 174/64; PULSE 96; O2SAT 97; BMI 32.7
--- NOTE | 2025-04-25 08:54 | A.OFFVIS_ITS ---
Vital Signs 04/25/25 08:54 Height 5 ft 1 in Weight 173 lb 1.006 oz BMI 32.7 BP 174/64 H Blood Pressure Location Lt brachial Position Sitting Pulse 96 Pulse Source Pulse Oximeter Pulse Oximetry (%) 97 Oxygen Delivery Method Room Air Intake Visit Reasons: Multinodular goiter Intake Note: Patient present today for Multinodular goiter office visit. Bed Spring Maker Required: No Accompanied by: Self / Same As Patient Allergies No Known Allergies Allergy (Verified 04/25/25 08:59) Medication List - Last Reconciled 04/25/25 by Sara Hernandez MD alendronate 70 mg PO QWEEK 30 days hydrochlorothiazide 12.5 mg PO Q OTHER DAY 30 days losartan 50 mg PO DAILY 30 days omeprazole 20 mg PO DAILY PRN rosuvastatin 40 mg PO DAILY 90 days HPI Comments Details: 74-year-old female here today for follow up of nontoxic multinodular goiter. Moved here from [place] Oct 18, now settled here. Has history of thyroid nodules diagnosed in 2017 at the time that she was undergoing evaluation for hyperparathyroidism and s/p lower right parathyroid gland resection 08/2018. Labs patient brought in from [facility] from 2023 showed normal calcium levels and she is seeing PCP for osteoporosis, on fosamax. For the thyroid nodules, she has been monitored with surveillance US . Was following with Endocrinology in [facility] thyroid report reviewed from : RUP 1.3x0.8x0.9 cm solid hypoechoic nodule with echogenic foci RMP 0.5 x 0.3 x 0.5 cm solid hypoechoic nodule RLP 0.6 x 0.4 x 0.6 cm solid hypoechoic nodule LMP 2.9 x 1.5 x 1.9 cm heterogenous nodule with cystic components. 08/25/23 FNA biopsy of the LLP 3.4 cm nodule and RUP 1.1 cm nodule both benign [place] 2. Patient currently denies heat or cold intolerance, diarrhea or constipation, hair loss, palpitation, anxiety, weight changes, mood changes, low energy, changes in appearance of eyes or vision changes, tremors, increased diaphoresis or dry skin. ? Patient denies any difficulty swallowing, pain on swallowing or voice changes or difficulty breathing. Patient denies any history of childhood neck radiation. Denies having ever used lithium, amiodarone or biotin supplements. Patient denies any family history of thyroid cancer. Mother : history of MNG Interval history 04/25/2025 Normal TSH from February 2025 Ultrasound thyroid 04/03/2025, I reviewed the images myself which showed a right superior 1.3 cm solid hypoechoic nodule with rim calcification, TR 4 category, this has been biopsied before and was benign in 2022, subcentimeter right midpole and right lower pole nodules which are both TR 4 category, in the left lower pole 2.9 cm solid hypoechoic TR 4 nodule which was also biopsied back in 2022 and was benign and remains stable in size. Physical exam General: sitting comfortably in no acute distress HEENT: normocephalic/atraumatic, Neck: supple, palpable 2 cm left sided nodule Cardiac: normal heart sounds Pulm: normal breath sounds B/L, no added breath sounds Abd: not distended, no tenderness Extremities: no edema, no signs of myxedema Laboratory Tests 03/23/25 09:58 TSH 0.65 Patient brought in reports from [place] for review in print Info deducted US thyroid report reviewed from : RUP 1.3x0.8x0.9 cm solid hypoechoic nodule with echogenic foci RMP 0.5 x 0.3 x 0.5 cm solid hypoechoic nodule RLP 0.6 x 0.4 x 0.6 cm solid hypoechoic nodule LMP 2.9 x 1.5 x 1.9 cm heterogenous nodule with cystic components. 08/25/23 FNA biopsy report of the LLP 3.4 cm nodule and RUP 1.1 cm nodule both benign [place] 2. EXAMINATION: US THYROID 04/03/25 HISTORY: E04.2 - Nontoxic multinodular goiter TECHNIQUE: Real-time grayscale ultrasound imaging was performed and images were reviewed. COMPARISON: There are no prior studies available for comparison. FINDINGS: SIZE: The right thyroid lobe measures 4.1 x 1.5 x 1.6 cm. The left thyroid lobe measures 4.6 x 2.3 x 2.6 cm. The isthmus measures 3 mm. FLOW: Flow to the gland is normal. ECHOGENICITY: The echotexture of the gland is heterogeneous. NODULES: Multiple bilateral thyroid nodules are identified as described below: Nodule #: 1 Location: Upper pole of the right thyroid lobe measuring 1.3 x 1.0 x 0.8 cm. Shape: Wider than tall (0 points) Margins: Smooth (0 points) Echotexture: Hypoechoic (2 points) Composition: Mostly solid (2 points) Calcifications: Rim calcification (2 points) Total points: 6 TIRADS: TR4: Moderately suspicious. Nodule #: 2 Location: Midportion of the right thyroid lobe measuring 5 x 3 x 5 mm. Shape: Wider than tall (0 points) Margins: Smooth (0 points) Echotexture: Hypoechoic (2 points) Composition: Mostly solid (2 points) Calcifications: None (0 points) Total points: 4 TIRADS: TR4: Moderately suspicious. Nodule #: 3 Location: Lower pole of the right thyroid lobe measuring 6 x 4 x 5 mm. Shape: Wider than tall (0 points) Margins: Smooth (0 points) Echotexture: Hypoechoic (2 points) Composition: Solid (2 points) Calcifications: None (0 points) Total points: 4 TIRADS: TR4: Moderately suspicious. Nodule #: 4 Location: Lower pole of the left thyroid lobe measuring 2.9 x 1.5 x 1.9 cm. Shape: Wider than tall (0 points) Margins: Smooth (0 points) Echotexture: Hypoechoic (2 points) Composition: Mostly solid (2 points) Calcifications: None (0 points) Total points: 4 TIRADS: TR4: Moderately suspicious. US/US thyroid IMPRESSION: Multiple bilateral thyroid nodules as described. According to ACR TI-RADS guidelines below, fine-needle aspiration of the dominant nodule at the lower pole of the left thyroid lobe (#4 above) is recommended. [facility] Medical History Multinodular goiter Polyarticular osteoarthritis High cholesterol Age related osteoporosis Essential (primary) hypertension Surgical History H/O hammer toe correction H/O carpal tunnel repair H/O cataract removal with insertion of prosthetic lens H/O myomectomy H/O parathyroidectomy History of right hip replacement Family History Mother Rheumatoid arthritis Hypotension Father Hypertension Myocardial infarction Social History Household Members Other:: Adopted Son [facility] Are you a primary pediatric care coordinator to a significant other at home: Yes Do you presently have visiting nurse or other home services: No 75 years or older and lives alone: No Alcohol intake: never Patient Tobacco Use Status: Never used Tobacco e-Cigarette/Vaping Use: Never Used service: No Current occupational status: retired Cognitive needs: No Hearing needs: No Vision needs: Yes (Reading glasses) Physical Exam Vital Signs: Last Vital Signs Pulse 96 04/25/25 08:54 BP 174/64 H 04/25/25 08:54 Pulse Ox 97 04/25/25 08:54 Oxygen Delivery Method Room Air 04/25/25 08:54 BMI result Body Mass Index 32.7 Assessment & Plan Assessment & Plan (1) Multinodular goiter: Code(s): E04.2 - Nontoxic multinodular goiter Category: Medical Plan: 74-year-old female with no personal history of head or neck radiation with a family history of thyroid cancer who is coming in today for follow up of nontoxic multinodular goiter. She was diagnosed with thyroid nodules in 2017 when she was undergoing evaluation for hyperparathyroidism status post right inferior parathyroid gland resection in August 2018. Subsequently thyroid nodules have been monitored with surveillance ultrasounds. outside thyroid ultrasound report from June 2023, I reviewed the report which showed a right upper pole 1.3 cm solid hypoechoic TR 5 category nodule with punctate echogenic foci , a right midpole subcentimeter solid hypoechoic nodule another right lower pole subcentimeter solid hypoechoic nodule, and a left midpole heterogenous nodule with cystic components measuring 2.9 next 1.5 X1.9 cm. She underwent FNA biopsy in July 2023 of the left mid/lower pole 3.4 cm nodule in the right upper pole 1.1 cm nodule which both came back as benign, [place] category 2. Normal TSH from February 2025 Ultrasound thyroid 04/03/2025, I reviewed the images myself which showed a right superior 1.3 cm solid hypoechoic nodule with rim calcification, TR 4 category, this has been biopsied before and was benign in 2022, subcentimeter right midpole and right lower pole nodules which are both TR 4 category, in the left lower pole 2.9 cm solid hypoechoic TR 4 nodule which was also biopsied back in 2022 and was benign and remains stable in size. Plan: -ordered TSH with a reflex free T4 to be done in 1 year prior to follow up in April 2026 -ordered ultrasound of the thyroid to be done in March 2026 prior to follow up in April 2026 -follow up in 1 year Plan See above Orders: Orders US thyroid 04/13/26 E04.2 - Nontoxic multinodular goiter TSH reflex Free T4 04/09/26 E04.2 - Nontoxic multinodular goiter Patient Instructions: Do ultrasound of the thyroid in March 2026 prior to her follow up in April 2026, someone we will call you to schedule this, please make sure it is done a few weeks prior to your next follow up with me Do blood work of the thyroid a few days prior to your follow up in April 2026, orders have been placed Coding Level of Care Code Est Pt Level 3 (02788) Diagnoses Multinodular goiter E04.2
== END 2025-04-25 09:44 | disposition home or self-care (01) ==
LOC: HO.ENCR 08:52
PROVIDERS: Visit Provider Student in an Organized Health Care Education/Training Program
DX: E04.2 Nontoxic multinodular goiter (principal)
CPT/HCPCS: 99213

== ENCOUNTER → 2025-04-25 08:51 | Outpatient (BNVA) | payer MEDICARE, SELFPAY | PROVIDERS: Visit Provider Student in an Organized Health Care Education/Training Program | DX: E04.2 Nontoxic multinodular goiter (principal); Z80.8 Family history of malignant neoplasm of other organs or systems | CPT/HCPCS: 99212 ==

== ENCOUNTER 2025-05-31 08:51 | Outpatient (REF) | payer MEDICARE, SELFPAY ==
--- NOTE | ~2025-05-31 | MM_ITS ---
EXAMINATION: DXA BONE DENSITY AXIAL HISTORY: M81.0 - Age-related osteoporosis without current pathological fracture TECHNIQUE: [employer] Dual energy absorptiometry (DEXA) of the lumbar spine, total left hip, and femoral neck was performed. COMPARISON: There are no prior studies for comparison. FINDINGS: The bone mineral density of the lumbar spine is 1.282 g/cm2, corresponding to a T-score of 0.9, and a Z-score of 2.2. This is indicative of normal bone mineral density. The bone mineral density of the left total hip is 0.892 g/cm2, corresponding to a T-score of -0.9, and a Z-score of 0.5. This is indicative of normal bone mineral density. The bone mineral density of the left femoral neck is 0.674 g/cm2, corresponding to a T-score of -2.6, and a Z-score of -1.0. This is indicative of osteoporosis. MM/XR DEXA axial skeleton IMPRESSION: Based on bone mineral density, and according to World Health Organization (WHO) criteria, the diagnosis is consistent with osteoporosis. Statistically, 68% of repeat scans fall within 1 SD (+/- 0.010 g/cm2 for AP spine L1-L4) and 1 SD (+/- 0.012 g/cm2 for femur total) FRAX is a trademark of the [employer]'s [place] for Metabolic Bone Disease, a World Health Organization (WHO) Collaborating Center. Electronically signed by: Zane Altamirano MD 05/31/2025 09:25 AM EDT
== END 2025-05-31 08:52 | disposition home or self-care (01) ==
LOC: HO.MAMMO 08:51
DX: M81.0 Age-related osteoporosis without current pathological fracture (principal)
CPT/HCPCS: 77080

== ENCOUNTER → 2025-05-31 09:15 | Outpatient (BNV) | payer MEDICARE, SELFPAY | PROVIDERS: Visit Provider Radiology Diagnostic Radiology | DX: E28.39 Other primary ovarian failure (principal) | CPT/HCPCS: 77080 ==

== ENCOUNTER 2025-07-07 10:08 | Outpatient (AMB) | payer MEDICARE, SELFPAY ==
[2025-07-07 10:22] VITALS: BP 160/80; PULSE 71; RESP 18; TEMP 36.2; O2SAT 97; BMI 32.2
--- NOTE | 2025-07-07 10:22 | MHC.PC.OV ---
Vital Signs 07/07/25 10:22 07/07/25 11:07 Height 5 ft 1 in Weight 170 lb 6 oz BMI 32.2 BP 160/80 H 144/78 H Blood Pressure Location Lt brachial Lt brachial Position Sitting Sitting Respiration 18 Pulse 71 Pulse Source Pulse Oximeter Temp 97.1 F Temp Source Temporal Artery Scan Pulse Oximetry (%) 97 Oxygen Delivery Method Room Air Intake Visit Reasons: htn/hld/hypothyroidism Retail Custodial Associate Required: No Accompanied by: Self / Same As Patient Allergies No Known Allergies Allergy (Verified 07/07/25 10:50) Medication List - Last Reconciled 07/07/25 by MARIA ISABEL Au alendronate 70 mg PO QWEEK 30 days hydrochlorothiazide 12.5 mg PO Q OTHER DAY 30 days losartan 50 mg PO DAILY omeprazole 20 mg PO DAILY rosuvastatin 40 mg PO DAILY 90 days Tobacco use date assessed: 07/07/25 Fall risk assessment: 1 Fall in past year Last assessed Fall Risk: 07/07/25 Dental Screening Dental Screen Date: 07/07/25 Did you have a dental visit in the last 12 months?: Yes Did you have a dental problem in the last 6 months where you did not have access to dental care?: No Was dental information given to patient?: Patient has dentist HPI htn/hld/hypothyroidism HPI Details The patient is a 74-year-old female presenting with hip pain and symptoms of allergic rhinitis. The patient reports experiencing hip pain on the right side where she had a hip replacement. The pain has been exacerbated by recent physical activity related to moving houses, which involved climbing stairs and bumping into furniture. Despite the discomfort, she has not required analgesics such as aspirin or Tylenol. She also reports chronic dry eyes, a condition she has managed for many years. Recently, her eyes have been watering more frequently, possibly due to environmental changes and exposure to dust during the move. The patient describes symptoms consistent with allergic rhinitis, including watery eyes and sneezing, which she attributes to dust exposure during moving. She has a history of negative allergy tests in [place] but acknowledges the environmental differences in her new location. Her medical history includes osteoporosis, for which she has undergone bone density testing. The results indicated a T-score of -2.6 at the left femoral neck, suggesting osteoporosis, while other areas were normal for her age. The patient has a family history of hypertension and hypercholesterolemia, which she refers to as a family heritage. She is currently managing her hypertension with medication, and her blood pressure was recorded at 144/78 mmHg during the visit. [facility] Medical History Multinodular goiter Polyarticular osteoarthritis High cholesterol Age related osteoporosis Essential (primary) hypertension Surgical History H/O hammer toe correction H/O carpal tunnel repair H/O cataract removal with insertion of prosthetic lens H/O myomectomy H/O parathyroidectomy History of right hip replacement Family History Mother Rheumatoid arthritis Hypotension Father Hypertension Myocardial infarction Social History Household Members Other:: Adopted Son Housing: [facility] Are you a primary manager progressive care to a significant other at home: Yes Do you presently have visiting nurse or other home services: No 75 years or older and lives alone: No Alcohol intake: never Patient Tobacco Use Status: Never used Tobacco e-Cigarette/Vaping Use: Never Used service: No Current occupational status: retired Cognitive needs: No Hearing needs: No Vision needs: Yes (Reading glasses) Questionnaire PHQ-9 Over the last 2 weeks, how often have you been bothered by any of the following problems? 1. Little interest or pleasure in doing things: not at all 2. Feeling down, depressed, or hopeless: not at all 3. Trouble falling or staying asleep, or sleeping too much: not at all 4. Feeling tired or having little energy: not at all 5. Poor appetite or overeating: not at all 6. Feeling bad about yourself - or that you are a failure or have let yourself or your family down: not at all 7. Trouble concentrating on things, such as reading the newspaper or watching television: not at all 8. Moving or speaking so slowly that other people could have noticed. Or the opposite - being so fidgety or restless that you have been moving around a lot more than usual: not at all 9. Thoughts that you would be better off or of hurting yourself in some way: not at all Total score: 0 Depression Screening Interpretation: Negative Depression Screening Done: Yes Source: Developed by Drs. Zane Sosa, Ruddy Mckeon and colleagues, with an educational dolores from [employer]. Thrive Questionnaire Date Thrive assessed: 07/07/25 I am a: Patient What is your living situation today?: I have a steady place to live Within the past 12 months, did the food you bought not last and you didn't have the money to get more?: Never true Within the past 12 months, did you worry whether your food would run out before you got money to buy more?: Never true Do you have trouble paying for medicines?: No Do you have trouble getting transportation to medical appointments?: No Do you have trouble paying your heating and electricity bill?: No Do you have trouble taking care of your child, family member or friend?: I choose not to answer this question Do you have trouble with day-to-day activities such as bathing, preparing meals, shopping, managing finances, etc.?: No Are you currently unemployed and looking for a job?: No Are you interested in more education?: No Currently or been in a relationship where the following occur: No concerns reported THRIVE Score: 0 AUDIT C Alcohol Use Questionnaire (AUDIT-C) 1. How often do you have a drink containing alcohol?: Never Total Score: 0 Score Reviewed/Action Taken: No JOSE-7 AMB Questionnaire JOSE-7 Date JOSE - 7 assessed: 07/07/25 Feeling nervous, anxious, or on edge: 0 = Not at all Not being able to stop or control worryin = Not at all Worrying too much about different things: 0 = Not at all Trouble relaxin = Not at all Being so restless that it is hard to sit still: 0 = Not at all Becoming easily annoyed or irritable: 0 = Not at all Feeling afraid as if something awful might happen: 0 = Not at all Total JOSE-7 score (0-4 normal; 5-9 mild; 10-14 moderate; 15-21 severe): 0 Source: Developed by Lucretia Ovalle Kurt Kroenke and colleagues, with an educational dolores from [employer]. Review of Systems Const Denies body aches, Denies chills, Reports fatigue, Denies fever(s), Denies headache(s) and Denies poor appetite Eyes Reports dry eyes (originally, turns watery now) and Reports itchy eyes ENT Denies dysphagia, Denies dizziness, Denies headache(s), Denies odynophagia and Reports other (sneezing on and off) Card Denies chest pain, Denies syncope, Denies edema, Denies irregular heart rhythm, Denies lightheadedness and Denies dyspnea Resp Denies cough and Denies dyspnea GI Denies abdominal pain, Denies constipation, Denies dysphagia, Denies diarrhea, Denies nausea, Denies odynophagia and Denies vomiting Reports no additional complaints Musc Reports arthralgias (mild right hip discomfort) Skin/Breast Reports system reviewed and no additional complaints, except as documented Neuro Denies dizziness, Denies syncope and Denies headache(s) Psych Reports no additional complaints Endo Reports fatigue Aller/Immun Reports itchy eyes Physical exam (Primary Care) Vital Signs: Last Vital Signs Temp 97.1 F 07/07/25 10:22 Pulse 71 07/07/25 10:22 Resp 18 07/07/25 10:22 BP 144/78 H 07/07/25 11:07 Pulse Ox 97 07/07/25 10:22 Oxygen Delivery Method Room Air 07/07/25 10:22 BMI result Body Mass Index 32.2 Tobacco/Smoking Status: Tobacco use Status Tobacco use date assessed 07/07/25 07/07/25 10:35 Patient Tobacco Use Status Never used Tobacco 07/07/25 10:25 e-Cigarette/Vaping Use Never Used 07/07/25 10:25 PHQ-9: PHQ-9 Score PHQ-9: Total score 0 07/07/25 11:08 Depression Screening Interpretation: Negative Thrive Assessment: Date of Thrive Assessment Date Thrive assessed 07/07/25 07/07/25 10:35 Currently or been in a relationship where the following occur: No concerns reported Const General: cooperative, healthy appearing, comfortable and no acute distress Orientation/consciousness: patient oriented x3 HENMT Head: Yes normocephalic Ears: hearing grossly normal bilaterally General nose exam: Abnormal mucous membranes and turbinates present erythematous bilateral and no nasal discharge noted Mouth: Normal oral and palatal mucosa present Eyes General: appearance normal, both eyes and all related structures Conjunctivae: conjunctivae normal Neck Neck: Yes full ROM and Yes no lymphadenopathy Resp Effort & Inspection: normal respiratory effort Auscultation: clear to auscultation bilaterally, no crackles, no rales, no rhonchi and no wheezes Cardio Rate: regular rate Rhythm: regular rhythm GI Inspection: Yes obesity Palpation (GI): nontender Auscultation: normal bowel sounds General: Yes no CVA tenderness Back/Spine/Pelvis Back: no CVA tenderness Thoracic/Lumbar Spine: thoracic and lumbar spine normal to inspection Skin General skin exam: no rashes or lesions noted Neuro General: patient oriented x3 Gait exam (Neuro): Normal gait present Extrem General: Yes normal to inspection, Yes full ROM and No edema Right lower extremity: hip/thigh Details: no tenderness and no swelling Psych Affect: normal affect Attitude: cooperative Insight: Good insight present (Psych) Judgement: Good judgement present (Psych) Coding Level of Care Code Est Pt Level 3 (91235) Diagnoses Essential (primary) hypertension I10 High cholesterol E78.00 Age-related osteoporosis without current pathological fracture M81.0 Presence of current pathological fracture: without current pathological fracture Heartburn R12 Right hip pain M25.551 Right knee pain, unspecified chronicity M25.561 Chronicity: unspecified Allergic rhinitis, unspecified seasonality, unspecified trigger J30.9 Allergic rhinitis trigger: unspecified Allergic rhinitis seasonality: unspecified Time Spent (min) 34 Assessment & Plan Assessment & Plan (1) Essential (primary) hypertension: Code(s): I10 - Essential (primary) hypertension Category: Medical Plan: Blood pressure 144/78 in office Reinforced low-salt diet Losartan increased to 75 mg daily, continue hydrochlorothiazide 12.5 mg every other day Return in 4 weeks for blood pressure check (2) High cholesterol: Code(s): E78.00 - Pure hypercholesterolemia, unspecified Category: Medical Plan: Total 184, Tri 83, LDL 112, HDL 56 on 03/23/2025-encouraged the patient to complete follow up labs as soon as possible Reinforced low-cholesterol diet Continue rosuvastatin 40 mg daily Encouraged fish oil or Co Q10 supplements We will recheck lipid panel in 3 months (3) Age related osteoporosis: Code(s): M81.0 - Age-related osteoporosis without current pathological fracture Category: Medical Qualifiers: Presence of current pathological fracture: without current pathological fracture Qualified Code(s): M81.0 - Age-related osteoporosis without current pathological fracture Plan: Patient is due for DEXA scan in March of this year (2024). She has an upcoming appointment with Rheumatology in June,. Dexa scan shows a -0.26 in left femoral neck Continue alendronate 70 mg q.week (4) Heartburn: Code(s): R12 - Heartburn Category: Medical Plan: complicated by haital hernia Reinforced dietary restrictions, allowing yourself at least 3 hours after eating before lying down Continue omeprazole 20 mg daily p.r.n. (5) Right hip pain: Code(s): M25.551 - Pain in right hip Category: Medical Plan: Status post right knee replacement in [place] Recent fall and ongoing pain in right hip when bearing weight No pain to palpation, positive range of motion Right hip x-ray ordered to further evaluate on previous visit, but has not been completed as yet Will continue to monitor (6) Right knee pain: Code(s): M25.561 - Pain in right knee Category: Medical Qualifiers: Chronicity: unspecified Qualified Code(s): M25.561 - Pain in right knee Plan: Complained of right knee pain on previous visit; no complaints today, history of osteoarthritis, however pain had increased since she sustained a fall. Right knee x-ray ordered to further evaluate on previous visit but has not been completed as yet. (7) Allergic rhinitis: Code(s): J30.9 - Allergic rhinitis, unspecified Category: Medical Qualifiers: Allergic rhinitis trigger: unspecified Allergic rhinitis seasonality: unspecified Qualified Code(s): J30.9 - Allergic rhinitis, unspecified Plan: The patient exhibits symptoms of allergic rhinitis, likely due to dust exposure. She is advised to use non-drowsy antihistamines such as Zyrtec or Claritin and consider nasal sprays like flonase for symptom relief. Medications: Changed From losartan 50 mg PO DAILY 90 tabs 0RF To losartan 75 mg (1.5 x 50 mg) PO DAILY 45 tabs 1RF 30 days
[2025-07-07 11:07] VITALS: BP 144/78
== END 2025-07-07 11:22 | disposition home or self-care (01) ==
LOC: HO.HMCH 10:09
DX: I10 Essential (primary) hypertension (principal); E78.00 Pure hypercholesterolemia, unspecified; M81.0 Age-related osteoporosis without current pathological fracture; R12 Heartburn; M25.551 Pain in right hip; M25.561 Pain in right knee; J30.9 Allergic rhinitis, unspecified

== ENCOUNTER → 2025-07-07 10:08 | Outpatient (BNVA) | payer MEDICARE, SELFPAY | DX: I10 Essential (primary) hypertension (principal); E78.00 Pure hypercholesterolemia, unspecified; M81.0 Age-related osteoporosis without current pathological fracture; R12 Heartburn; M25.551 Pain in right hip; M25.561 Pain in right knee; J30.9 Allergic rhinitis, unspecified | CPT/HCPCS: 99212 ==

== ENCOUNTER → 2025-08-03 10:35 | Outpatient (BNVA) | payer MEDICARE, SELFPAY | DX: Z13.89 Encounter for screening for other disorder (principal) | CPT/HCPCS: 99211 ==

== ENCOUNTER 2025-08-15 10:29 | Outpatient (AMB) | payer MEDICARE, SELFPAY ==
--- NOTE | 2025-08-15 11:08 | A.OFFVIS_ITS ---
Vital Signs 08/15/25 11:18 Height 5 ft 1 in Weight 172 lb 6.424 oz BMI 32.6 BP 142/80 H Blood Pressure Location Lt brachial Position Sitting Pulse 81 Pulse Source Pulse Oximeter Pulse Oximetry (%) 96 Oxygen Delivery Method Room Air Intake Visit Reasons: Polyosteoarthritis Intake Note: New patient presents for Polyosteoarthritis. Allergies No Known Allergies Allergy (Verified 08/15/25 11:13) HPI Comments Details: Patient is a 75 y.o. female with HTN, HLD, GERD, polyarticular OA and osteoporosis here today to establish care Moved to [facility] about 1 year ago from [place] (Previous records reviewed) In [place] she was followed by a brass cleaner for her OA and osteoporosis. Started osteoporosis 2 years ago Would get intermittent joint injections Today, Complaining of bilateral 1st CMC pain, previously would get steroid injections Requesting injections today [facility] Medical History Multinodular goiter Polyarticular osteoarthritis High cholesterol Age related osteoporosis Essential (primary) hypertension Surgical History H/O hammer toe correction H/O carpal tunnel repair H/O cataract removal with insertion of prosthetic lens H/O myomectomy H/O parathyroidectomy History of right hip replacement Family History Mother Rheumatoid arthritis Hypotension Father Hypertension Myocardial infarction Social History Household Members Other:: Adopted Son Housing: House Are you a primary customer care associate to a significant other at home: Yes Do you presently have visiting nurse or other home services: No 75 years or older and lives alone: No Alcohol intake: never Patient Tobacco Use Status: Never used Tobacco e-Cigarette/Vaping Use: Never Used service: No Current occupational status: retired Cognitive needs: No Hearing needs: No Vision needs: Yes (Reading glasses) Review of Systems Narrative Review of Systems Constitutional: Denies fever, chills, weight loss ENT: Denies vision changes, eye pain or eye redness, dental caries, dry mouth GI: Denies nausea, vomiting, diarrhea, abdominal pain, change in BM Pulm: Denies SOB, BOTELLO, hemoptysis, wheezing Cards: Denies chest pain, palpitations Skin: Denies Raynaud's, rash, nail changes, photosensitivity, WEB SITE ADMIN: Denies headaches, weakness, paresthesias, recurrent falls MSK: as per HPI All other systems reviewed and are unremarkable except noted above Physical Exam Exam Exam: Vital signs reviewed Physical Examination CONSTITUITIONAL Patient alert and cooperative. Well appearing and in no apparent painful distress MSK Hands * Right Hand: Able to make a fist. No swelling or tenderness to palpation of the MCPs, PIPs or DIPs. * Left Hand: Able to make a fist. No swelling or tenderness to palpation of the MCPs, PIPs or DIPs. * Herbedens nodes noted bilaterally * Bilateral positive CMC grind test Wrists * Right Wrist: Full ROM to flexion and extension. No swelling or TTP * Left Wrist: Full ROM to flexion and extension. No swelling or TTP Elbows * Right Elbow: Full ROM. No swelling or TTP. No TTP of the medial epicondyle. No TTP of the lateral epicondyle * Left Elbow: Full ROM. No swelling or TTP. No TTP of the medial epicondyle. No TTP of the lateral epicondyle Shoulders * Right shoulder: Decreased ROM. No swelling noted. No TTP of the AC joint. No TTP of the subacromial bursa. No TTP of the posterior shoulder * Left shoulder: Decreased ROM. No swelling noted. No TTP of the AC joint. No TTP of the subacromial bursa. No TTP of the posterior shoulder Knees * Right knee: Full ROM. No swelling noted. No TTP of the knee joint line. No TTP of pes anserine bursa * Left knee: Full ROM. No swelling noted. No TTP of the knee joint line. No TTP of pes anserine bursa. * Crepitations felt bilaterally Ankles * Right ankle: Good ankle dorsiflexion and plantar flexion. No swelling. No TTP of the ankle joint * Left ankle: Good ankle dorsiflexion and plantar flexion. No swelling. No TTP of the ankle joint Feet * Right foot: Negative squeeze test * Left foot: Negative squeeze test Tender points? * No tenderness to palpation of the bilateral trapezius, supraspinatus, anterior costochondral junctions, bilateral suboccipital muscle insertions SKIN No rashes Vital Signs: Last Vital Signs Pulse 81 08/15/25 11:18 BP 142/80 H 08/15/25 11:18 Pulse Ox 96 08/15/25 11:18 Oxygen Delivery Method Room Air 08/15/25 11:18 BMI result Body Mass Index 32.6 Results Reviewed Results Reviewed: Laboratory Tests 03/23/25 09:58 WBC 7.7 RBC 4.90 Hgb 14.4 Hct 43.7 Plt Count 258 Sodium 142 Potassium 4.2 Chloride 107 Carbon Dioxide 25 BUN 18 H Creatinine 0.66 AST 27 ALT 22 25-OH Vitamin D Total 40.5 DEXA 05/2025 FINDINGS: The bone mineral density of the lumbar spine is 1.282 g/cm2, corresponding to a T-score of 0.9, and a Z-score of 2.2. This is indicative of normal bone mineral density. The bone mineral density of the left total hip is 0.892 g/cm2, corresponding to a T-score of -0.9, and a Z-score of 0.5. This is indicative of normal bone mineral density. The bone mineral density of the left femoral neck is 0.674 g/cm2, corresponding to a T-score of -2.6, and a Z-score of -1.0. This is indicative of osteoporosis. Assessment & Plan Assessment & Plan (1) Polyarticular osteoarthritis: Code(s): M15.9 - Polyosteoarthritis, unspecified Category: Medical Plan: #Polyarticular OA Patient is a 75-year-old female with polyarticular osteoarthritis here today to establish care Complaining of bilateral 1st CMC pain Plan - s/p Bilateral 1st CMC joint injections - RTC 6 months (2) Age related osteoporosis: Comment: DEXA 05/2025: AP Spine 0.9, Left total hip -0.9, Left femoral neck -2.6 Alendronate since 2022 Code(s): M81.0 - Age-related osteoporosis without current pathological fracture Category: Medical Qualifiers: Presence of current pathological fracture: without current pathological fracture Qualified Code(s): M81.0 - Age-related osteoporosis without current pathological fracture Plan: #Osteoporosis On alendronate Unsure if there has been any change on the alendronate Asked patient to get previous DEXA Plan - Continue alendronate 70mg weekly - F/u previous DEXA Plan I spent 45 minutes reviewing the record and labs, taking a history, examining the patient, discussing the treatment plan, ordering diagnostic work up and documenting in the medical record Coding Level of Care Code New Pt Level 4 (92277) Diagnoses Polyarticular osteoarthritis M15.9 Age-related osteoporosis without current pathological fracture M81.0 Presence of current pathological fracture: without current pathological fracture
[2025-08-15 11:18] VITALS: BP 142/80; PULSE 81; O2SAT 96; BMI 32.6
== END 2025-08-15 12:19 | disposition home or self-care (01) ==
LOC: HO.RHES 10:30
PROVIDERS: Visit Provider Student in an Organized Health Care Education/Training Program
DX: M15.9 Polyosteoarthritis, unspecified (principal); M79.644 Pain in right finger(s); M79.645 Pain in left finger(s); M81.0 Age-related osteoporosis without current pathological fracture
CPT/HCPCS: 20600; 99204

== ENCOUNTER → 2025-08-15 10:29 | Outpatient (BNVA) | payer MEDICARE, SELFPAY | PROVIDERS: Visit Provider Student in an Organized Health Care Education/Training Program | DX: M15.9 Polyosteoarthritis, unspecified (principal); M81.0 Age-related osteoporosis without current pathological fracture | CPT/HCPCS: 20600; 99202; J3301 ==

== ENCOUNTER 2025-10-03 08:10 | Outpatient (REF) | payer MEDICARE, SELFPAY ==
[2025-10-03 08:26] LABS: MANUAL DIFF FLAG NO
[2025-10-03 08:38] LABS: Hematocrit 45.6 % (37.0-47.0); Hemoglobin 14.9 g/dl (12.0-16.0); Imm Gran Abs Auto 0.03 X10*3/uL (0.00-0.03); Imm Gran Pct Auto 0.3 % (0.0-0.4); Lymphocytes Absolute Auto 2.3 X10*3/uL (1.2-4.9); Mean Corpuscular HGB Conc 32.7 g/dl (31.0-35.0); Mean Corpuscular Hemoglobin 29.4 pg (27.0-33.0); Mean Corpuscular Volume 89.9 fL (80.0-98.0); NRBC Abs Auto 0.000 X10*3/uL (0.0-0.012); NRBC Pct Auto 0.0 /100WBC (0.0-0.2); Platelet Count 271 X10*3/uL (160-400); Red Blood Count 5.07 X10*6/uL (4.20-5.50); White Blood Count 9.2 X10*3/uL (4.8-10.8)
[2025-10-03 09:12] LABS: Alanine Aminotransferase 27 U/L (0-31); Albumin Level 4.2 g/dL (3.5-5.0); Alkaline Phosphatase 49 U/L (39-117); Anion Gap 11 (12-20); Aspartate Amino Transferase 26 U/L (5-31); Blood Urea Nitrogen 29 mg/dL (9-16); Calcium 9.6 mg/dL (8.4-10.2); Carbon Dioxide 27 mmol/L (22-29); Chloride 106 mmol/L (96-108); Cholesterol 183 mg/dL (<200); Estimated Glomerular Filt Rate > 60; HDL Cholesterol 62 mg/dL (>40); Potassium 4.1 mmol/L (3.3-5.1); Sodium 140 mmol/L (135-145); Total Protein 6.7 g/dL (6.5-8.0); Triglycerides 94 mg/dL (<150)
[2025-10-03 09:25] LABS: Appearance Urine Clear; Glucose Urine UA Negative (Negative); PH 5.5 (5.0-9.0); Specific Gravity - Urine >= 1.030 (1.005-1.025); UMIC TRIGGER UACC YES
[2025-10-03 09:27] LABS: Free T4 (Free Thyroxine) 0.92 ng/dL (0.71-1.85)
[2025-10-03 10:11] LABS: UACC Culture Trigger YES
== END 2025-10-03 08:11 | disposition home or self-care (01) ==
LOC: HO.LAB 08:10
DX: M81.0 Age-related osteoporosis without current pathological fracture (principal); E04.2 Nontoxic multinodular goiter; M15.9 Polyosteoarthritis, unspecified; E78.00 Pure hypercholesterolemia, unspecified; I10 Essential (primary) hypertension; R12 Heartburn; Z13.1 Encounter for screening for diabetes mellitus; Z98.890 Other specified postprocedural states; Z90.89 Acquired absence of other organs
CPT/HCPCS: 36415; 80053; 80061; 81001; 82306; 83036; 84439; 84443; 85025; 87086; 87088; 87186

== ENCOUNTER 2025-10-06 10:24 | Outpatient (AMB) | payer MEDICARE, SELFPAY ==
[2025-10-06 10:26] VITALS: BP 166/76; PULSE 75; RESP 18; O2SAT 97; BMI 32.1
--- NOTE | 2025-10-06 10:26 | MHC.PC.OV ---
Vital Signs 10/06/25 10:26 Height 5 ft 1 in Weight 170 lb BMI 32.1 BP 166/76 H Blood Pressure Location Lt brachial Position Sitting Respiration 18 Pulse 75 Pulse Source Pulse Oximeter Temp Source Temporal Artery Scan Pulse Oximetry (%) 97 Oxygen Delivery Method Room Air Intake Visit Reasons: 3mth f/u [employer] Required: No Accompanied by: Self / Same As Patient Allergies No Known Allergies Allergy (Verified 10/06/25 11:22) Medication List - Last Reconciled 10/06/25 by MARIA ISABEL Au alendronate 70 mg PO QWEEK 30 days atorvastatin (Lipitor) 80 mg PO BEDTIME hydrochlorothiazide 12.5 mg PO Q OTHER DAY 30 days losartan 75 mg (1.5 x 50 mg) PO DAILY omeprazole 20 mg PO DAILY rosuvastatin 40 mg PO DAILY 90 days Held on 08/04/25. Instructions: Doctor's Order Tobacco use date assessed: 10/06/25 Fall risk assessment: No Falls in past year Last assessed Fall Risk: 10/06/25 Dental Screening Dental Screen Date: 10/06/25 Did you have a dental visit in the last 12 months?: Yes Did you have a dental problem in the last 6 months where you did not have access to dental care?: No Was dental information given to patient?: Patient has dentist HPI HPI Comments History of Present Illness Details History of Present Illness The patient is a 75-year-old female presenting for management of chronic conditions and new URI symptoms. She has a family history of hypertension and hypercholesterolemia on her father's side. The patient has been experiencing significant stress related to moving houses over the past couple of years, which she feels may be contributing to her elevated blood pressure. Regarding her hypertension, she checks her blood pressure at home, where systolic readings fluctuate between 160 and 175 mmHg, and diastolic readings are between 60 and 70-something mmHg. In-office today, her initial blood pressure was 166/76 mmHg, which later improved to 150/74 mmHg. She is currently taking losartan 75 mg and reports compliance with her medication. Her cholesterol has shown improvement, and recent lab work indicates a decrease in her glucose levels, with a good A1C. She experiences muscle cramps, which she associates with her statin medication, and takes magnesium oxide 400 mg at night to help with this. She reports her thyroid function is good per recent labs and an endocrinology follow-up. The patient reports symptoms of a cold, including feeling stuffy, dry eyes, and sinus pressure. She has taken an xdfv-jeg-oransoo medication, Cold-Eeze, for her symptoms. She denies a cough. She also notes intermittent, alternating ear pain, which may be musculoskeletal from recent physical activity. Past medical history is significant for a knee replacement, which has been bothering her, possibly due to the cold weather. She reports trying to lose weight but has had irregular eating patterns recently. Her activity includes going up and down stairs frequently in her multilevel home and she plans to start using a treadmill. Health Maintenance The patient is encouraged to start exercising with her treadmill, beginning with short durations like 5-10 minutes and gradually increasing to 20 minutes to allow her body to acclimate and prevent soreness. She was advised on the importance of fall prevention. The patient reports taking Centrum and lutein supplements. Social History - Living Situation: The patient recently moved and is now settled in her new house. 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 - Family and Social Support: Her and son live with her. - Most of her family now lives in the [facility], allowing for more frequent visits. - Diet: She has not been eating at regular times recently. - She reports being careful with her diet but has had irregular meal patterns. - She loves yogurt and fruit for lunch but sometimes eats crackers or similar items. - Exercise: Her current daily activity involves climbing stairs in her multilevel home. - She plans to start using a treadmill. - Functional Status: The patient gets tired more easily. - She is more careful with driving and walking to prevent falls. Results - CBC: Normal. - CMP: Kidney function is good. - Glucose: Decreased. - Hemoglobin A1c: Checked and results are good. - Lipid Panel: Cholesterol has decreased. - Vitamin D: Level is good. - TSH: Thyroid level is good. - Urinalysis: Results discussed. [facility] Medical History Multinodular goiter Polyarticular osteoarthritis High cholesterol Age related osteoporosis Essential (primary) hypertension Surgical History H/O hammer toe correction H/O carpal tunnel repair H/O cataract removal with insertion of prosthetic lens H/O myomectomy H/O parathyroidectomy History of right hip replacement Family History Mother Rheumatoid arthritis Hypotension Father Hypertension Myocardial infarction Social History Household Members Other:: Adopted Son Housing: House Are you a primary intensive care anaesthetist to a significant other at home: Yes Do you presently have visiting nurse or other home services: No 75 years or older and lives alone: No Alcohol intake: never Patient Tobacco Use Status: Never used Tobacco e-Cigarette/Vaping Use: Never Used service: No Current occupational status: retired Cognitive needs: No Hearing needs: No Vision needs: Yes (Reading glasses) Questionnaire PHQ-9 Over the last 2 weeks, how often have you been bothered by any of the following problems? Depression Screening Interpretation: Negative Depression Screening Done: Yes Source: Developed by Drs. Zane Sosa, Lucretia Sierra, Ruddy López and colleagues, with an educational dolores from [employer]. Thrive Questionnaire Date Thrive assessed: 10/06/25 I am a: Patient What is your living situation today?: I have a steady place to live Within the past 12 months, did the food you bought not last and you didn't have the money to get more?: Never true Within the past 12 months, did you worry whether your food would run out before you got money to buy more?: Never true Do you have trouble paying for medicines?: No Do you have trouble getting transportation to medical appointments?: No Do you have trouble paying your heating and electricity bill?: No Do you have trouble taking care of your child, family member or friend?: I choose not to answer this question Do you have trouble with day-to-day activities such as bathing, preparing meals, shopping, managing finances, etc.?: No Are you currently unemployed and looking for a job?: No Are you interested in more education?: No Currently or been in a relationship where the following occur: No concerns reported THRIVE Score: 0 JOSE-7 AMB Questionnaire JOSE-7 Date JOSE - 7 assessed: 07/07/25 Source: Developed by Lucretia Ovalle, Ruddy López and colleagues, with an educational dolores from [employer]. Review of Systems Narrative Review of Systems - Constitutional: Reports easily fatiguing. - HEENT: Reports dry eyes, nasal stuffiness, and sinus pressure. - Reports intermittent, alternating otalgia. - Denies cough. - Genitourinary: Reports use of pads for urinary leakage. - Musculoskeletal: Reports knee pain in her replaced knee, which is exacerbated by cold. - Reports muscle cramps. Const Denies body aches, Denies chills, Reports fatigue (easily), Denies fever(s), Denies headache(s) and Denies poor appetite Eyes Reports dry eyes (originally, turns watery now) and Reports itchy eyes ENT Denies dysphagia, Denies dizziness, Denies headache(s), Denies odynophagia and Reports other (sneezing on and off) Card Denies chest pain, Denies syncope, Denies edema, Denies irregular heart rhythm, Denies lightheadedness and Denies dyspnea Resp Denies cough and Denies dyspnea GI Denies abdominal pain, Denies constipation, Denies dysphagia, Denies diarrhea, Denies nausea, Denies odynophagia and Denies vomiting Reports no additional complaints Musc Reports arthralgias (mild right hip discomfort) Skin/Breast Reports system reviewed and no additional complaints, except as documented Neuro Denies dizziness, Denies syncope and Denies headache(s) Psych Reports no additional complaints Endo Reports fatigue (easily) Aller/Immun Reports itchy eyes Physical exam (Primary Care) Vital Signs: Last Vital Signs Pulse 75 10/06/25 10:26 Resp 18 10/06/25 10:26 BP 166/76 H 10/06/25 10:26 Pulse Ox 97 10/06/25 10:26 Oxygen Delivery Method Room Air 10/06/25 10:26 BMI result Body Mass Index 32.1 Tobacco/Smoking Status: Tobacco use Status Tobacco use date assessed 10/06/25 10/06/25 10:27 Patient Tobacco Use Status Never used Tobacco 10/06/25 10:27 e-Cigarette/Vaping Use Never Used 10/06/25 10:27 Depression Screening Interpretation: Negative Thrive Assessment: Date of Thrive Assessment Date Thrive assessed 10/06/25 10/06/25 10:27 Currently or been in a relationship where the following occur: No concerns reported Narrative Physical Exam - Vitals: Blood pressure was 166/76 mmHg initially and 150/74 mmHg on recheck. - HEENT: Palpation of frontal sinuses reveals pressure without significant pain. - Cardiovascular: Heart auscultation performed, findings not specified. Const General: cooperative, healthy appearing, comfortable and no acute distress Orientation/consciousness: patient oriented x3 HENMT Head: Yes normocephalic Ears: hearing grossly normal bilaterally General nose exam: Abnormal mucous membranes and turbinates present erythematous bilateral and no nasal discharge noted Mouth: Normal oral and palatal mucosa present Eyes General: appearance normal, both eyes and all related structures Conjunctivae: conjunctivae normal Neck Neck: Yes full ROM and Yes no lymphadenopathy Resp Effort & Inspection: normal respiratory effort Auscultation: clear to auscultation bilaterally, no crackles, no rales, no rhonchi and no wheezes Cardio Rate: regular rate Rhythm: regular rhythm GI Inspection: Yes obesity Palpation (GI): nontender Auscultation: normal bowel sounds General: Yes no CVA tenderness Back/Spine/Pelvis Back: no CVA tenderness Thoracic/Lumbar Spine: thoracic and lumbar spine normal to inspection Skin General skin exam: no rashes or lesions noted Neuro General: patient oriented x3 Gait exam (Neuro): Normal gait present Extrem General: Yes normal to inspection, Yes full ROM and No edema Right lower extremity: hip/thigh Details: no tenderness and no swelling Psych Affect: normal affect Attitude: cooperative Insight: Good insight present (Psych) Judgement: Good judgement present (Psych) Results Reviewed Results Reviewed: Laboratory Tests 10/03/25 10/03/25 08:18 08:24 WBC 9.2 RBC 5.07 Hgb 14.9 Hct 45.6 MCV 89.9 MCH 29.4 MCHC 32.7 RDW 13.2 Plt Count 271 Sodium 140 Potassium 4.1 Chloride 106 Carbon Dioxide 27 Anion Gap 11 L BUN 29 H Creatinine 0.69 Estimated GFR > 60 Fasting Glucose 98 Estimat Average Glucose 117 Hemoglobin A1c % 5.7 Calcium 9.6 Total Bilirubin 0.8 AST 26 ALT 27 Alkaline Phosphatase 49 Total Protein 6.7 Albumin 4.2 Triglycerides 94 Cholesterol 183 LDL Cholesterol, Calc 103 H HDL Cholesterol 62 25-OH Vitamin D Total 35.0 TSH 0.79 Free T4 0.92 Urine Color Yellow Urine Appearance Clear Urine pH 5.5 Ur Specific [place] >= 1.030 H Urine Protein Negative Urine Glucose (UA) Negative Urine Ketones Negative Urine Blood Small (1+) H Urine Nitrite Negative Ur Leukocyte Esterase Small (1+) H Urine RBC 0-2 Urine WBC 11-20 Ur Squamous Epith Cells 0-2 Urine Bacteria Trace Hyaline Casts 0-2 Coding Level of Care Code Est Pt Level 4 (36007) Diagnoses Essential (primary) hypertension I10 High cholesterol E78.00 Age-related osteoporosis without current pathological fracture M81.0 Presence of current pathological fracture: without current pathological fracture Heartburn R12 Right hip pain M25.551 Right knee pain, unspecified chronicity M25.561 Chronicity: unspecified Allergic rhinitis, unspecified seasonality, unspecified trigger J30.9 Allergic rhinitis trigger: unspecified Allergic rhinitis seasonality: unspecified Upper respiratory tract infection, unspecified type J06.9 URI type: unspecified URI Time Spent (min) 39 Assessment & Plan Assessment & Plan (1) Essential (primary) hypertension: Code(s): I10 - Essential (primary) hypertension Category: Medical Plan: The patient's blood pressure remains elevated despite being on losartan 75 mg. She has been under significant stress, which may be a contributing factor. The plan is to increase the losartan dose to 100 mg. A combination pill of losartan 100 mg / hydrochlorothiazide 12.5 mg was offered for convenience, but the patient preferred to continue taking hydrochlorothiazide separately in the evening due to urinary frequency. A follow-up appointment is scheduled in three months to reassess blood pressure control on the new dose (2) High cholesterol: Code(s): E78.00 - Pure hypercholesterolemia, unspecified Category: Medical Plan: The patient's cholesterol has improved. She experiences muscle cramps, a common side effect of statins. It was recommended to continue taking the statin in the evening to minimize the sensation of muscle aches while sleeping. She currently takes magnesium oxide 400 mg for cramps, and it was suggested this dose could be increased to 450 mg. She can take her statin and magnesium at the same time. Topical magnesium cream was also discussed as an option for localized muscle relaxation. The patient also takes CoQ10, which is beneficial for cholesterol management. We will recheck lipid panel in 3 months (3) Age related osteoporosis: Comment: DEXA 05/2025: AP Spine 0.9, Left total hip -0.9, Left femoral neck -2.6 Alendronate since 2022 Code(s): M81.0 - Age-related osteoporosis without current pathological fracture Category: Medical Qualifiers: Presence of current pathological fracture: without current pathological fracture Qualified Code(s): M81.0 - Age-related osteoporosis without current pathological fracture Plan: Patient is due for DEXA scan in March of this year (2024). She has an upcoming appointment with Rheumatology in June,. Dexa scan shows a -0.26 in left femoral neck Continue alendronate 70 mg q.week (4) Heartburn: Code(s): R12 - Heartburn Category: Medical Plan: complicated by haital hernia Reinforced dietary restrictions, allowing yourself at least 3 hours after eating before lying down Continue omeprazole 20 mg daily p.r.n. (5) Right hip pain: Code(s): M25.551 - Pain in right hip Category: Medical Plan: Status post right knee replacement in [place] Recent fall and ongoing pain in right hip when bearing weight No pain to palpation, positive range of motion Right hip x-ray ordered to further evaluate on previous visit, but has not been completed as yet Will continue to monitor (6) Right knee pain: Code(s): M25.561 - Pain in right knee Category: Medical Qualifiers: Chronicity: unspecified Qualified Code(s): M25.561 - Pain in right knee Plan: Complained of right knee pain on previous visit; no complaints today, history of osteoarthritis, however pain had increased since she sustained a fall. Right knee x-ray ordered to further evaluate on previous visit but has not been completed as yet. (7) Allergic rhinitis: Code(s): J30.9 - Allergic rhinitis, unspecified Category: Medical Qualifiers: Allergic rhinitis trigger: unspecified Allergic rhinitis seasonality: unspecified Qualified Code(s): J30.9 - Allergic rhinitis, unspecified Plan: The patient exhibits symptoms of allergic rhinitis, likely due to dust exposure. She is advised to use non-drowsy antihistamines such as Zyrtec or Claritin and consider nasal sprays like flonase for symptom relief. (8) Upper respiratory infection: Code(s): J06.9 - Acute upper respiratory infection, unspecified Category: Medical Qualifiers: URI type: unspecified URI Qualified Code(s): J06.9 - Acute upper respiratory infection, unspecified Plan: The patient presents with symptoms of a cold, including stuffiness and sinus pressure. She has been using Cold-Eeze, which is safe to continue with her blood pressure. For sinus symptoms, it was recommended to take Claritin for a few days to help with congestion. It was also suggested to increase Vitamin C intake up to 1000 mg to help the immune system Plan Plan Patient was informed and verbally consented to the use of an ambient scribe for clinic note documentation during this visit. 1. Hypertension The patient's blood pressure remains elevated despite being on losartan 75 mg. She has been under significant stress, which may be a contributing factor. The plan is to increase the losartan dose to 100 mg. A combination pill of losartan 100 mg / hydrochlorothiazide 12.5 mg was offered for convenience, but the patient preferred to continue taking hydrochlorothiazide separately in the evening due to urinary frequency. A follow-up appointment is scheduled in three months to reassess blood pressure control on the new dose. 2. Upper Respiratory Infection The patient presents with symptoms of a cold, including stuffiness and sinus pressure. She has been using Cold-Eeze, which is safe to continue with her blood pressure. For sinus symptoms, it was recommended to take Claritin for a few days to help with congestion. It was also suggested to increase Vitamin C intake up to 1000 mg to help the immune system. 3. Hypercholesterolemia And Statin-Induced Myalgia The patient's cholesterol has improved. She experiences muscle cramps, a common side effect of statins. It was recommended to continue taking the statin in the evening to minimize the sensation of muscle aches while sleeping. She currently takes magnesium oxide 400 mg for cramps, and it was suggested this dose could be increased to 450 mg. She can take her statin and magnesium at the same time. Topical magnesium cream was also discussed as an option for localized muscle relaxation. The patient also takes CoQ10, which is beneficial for cholesterol management. Discussion Notes I discussed the patient's persistently elevated blood pressure readings despite her current medication regimen. We reviewed the contribution of stress from her recent move. I recommended increasing her losartan dose from 75 mg to 100 mg daily. I offered a combination pill containing hydrochlorothiazide for convenience, but she preferred to keep her medications separate, taking the diuretic in the evening to manage urinary side effects during the day. We reviewed her recent lab results, noting improvements in her cholesterol and glucose levels, which pleased her. We discussed managing the muscle cramps associated with her statin by taking the medication at night and continuing her magnesium oxide supplement, which she can take concurrently. I confirmed that her [id number] cold remedy, Cold-Eeze, is safe with her hypertension and suggested short-term use of Claritin for sinus congestion. We also discussed her new exercise plans, and I advised her to start slowly with the treadmill to avoid overexertion and ensure her body adapts. We agreed on a follow-up visit in three months to monitor the effectiveness of the adjusted blood pressure medication. Patient Instructions - Increase your losartan medication to 100 mg once a day to help lower your blood pressure. - Continue taking your statin medication for cholesterol in the evening to help reduce muscle cramps. - You can continue taking magnesium oxide at night to help with muscle cramps. It is safe to take with your statin. - For your cold symptoms, you can take Claritin for a few days to help with stuffiness and sinus pressure. You can also increase your Vitamin C to 1,000 mg daily while you feel sick. - When you start using the treadmill, begin with short sessions of 5-10 minutes and slowly work your way up to 20 minutes. This will help your body get used to the exercise. - Continue to be careful to avoid falls. - Please schedule a follow-up appointment in three months to check on your blood pressure. Orders: Orders Comprehensive [place]. Panel Fast 3 Months E04.1 - Nontoxic single thyroid nodule, E04.2 - Nontoxic multinodular goiter, E78.00 - Pure hypercholesterolemia, unspecified, I10 - Essential (primary) hypertension, J30.9 - Allergic rhinitis, unspecified, R12 - Heartburn, R73.03 - Prediabetes Lipid Panel 3 Months E04.1 - Nontoxic single thyroid nodule, E04.2 - Nontoxic multinodular goiter, E78.00 - Pure hypercholesterolemia, unspecified, I10 - Essential (primary) hypertension, J30.9 - Allergic rhinitis, unspecified, R12 - Heartburn, R73.03 - Prediabetes Complete Blood Count Auto Diff 3 Months E04.1 - Nontoxic single thyroid nodule, E04.2 - Nontoxic multinodular goiter, E78.00 - Pure hypercholesterolemia, unspecified, I10 - Essential (primary) hypertension, J30.9 - Allergic rhinitis, unspecified, R12 - Heartburn, R73.03 - Prediabetes TSH reflex Free T4 3 Months E04.1 - Nontoxic single thyroid nodule, E04.2 - Nontoxic multinodular goiter, E78.00 - Pure hypercholesterolemia, unspecified, I10 - Essential (primary) hypertension, J30.9 - Allergic rhinitis, unspecified, R12 - Heartburn, R73.03 - Prediabetes UA CC w/rflx Micro + Cult 3 Months E04.1 - Nontoxic single thyroid nodule, E04.2 - Nontoxic multinodular goiter, E78.00 - Pure hypercholesterolemia, unspecified, I10 - Essential (primary) hypertension, J30.9 - Allergic rhinitis, unspecified, R12 - Heartburn, R73.03 - Prediabetes Vitamin D 25-OH Total 3 Months E04.1 - Nontoxic single thyroid nodule, E04.2 - Nontoxic multinodular goiter, E78.00 - Pure hypercholesterolemia, unspecified, I10 - Essential (primary) hypertension, J30.9 - Allergic rhinitis, unspecified, R12 - Heartburn, R73.03 - Prediabetes Free T4 (Free Thyroxine) 3 Months E04.1 - Nontoxic single thyroid nodule, E04.2 - Nontoxic multinodular goiter, E78.00 - Pure hypercholesterolemia, unspecified, I10 - Essential (primary) hypertension, J30.9 - Allergic rhinitis, unspecified, R12 - Heartburn, R73.03 - Prediabetes Hemoglobin A1c 3 Months E04.1 - Nontoxic single thyroid nodule, E04.2 - Nontoxic multinodular goiter, E78.00 - Pure hypercholesterolemia, unspecified, I10 - Essential (primary) hypertension, J30.9 - Allergic rhinitis, unspecified, R12 - Heartburn, R73.03 - Prediabetes Medications: New losartan 100 mg PO DAILY 90 tabs 3RF Discontinued losartan Discontinued Reason: Doctor's Order 75 mg (1.5 x 50 mg) PO DAILY 135 tabs 0RF
== END 2025-10-06 11:55 | disposition home or self-care (01) ==
LOC: HO.HMCH 10:25
DX: I10 Essential (primary) hypertension (principal); E78.00 Pure hypercholesterolemia, unspecified; M81.0 Age-related osteoporosis without current pathological fracture; R12 Heartburn; M25.551 Pain in right hip; M25.561 Pain in right knee; J30.9 Allergic rhinitis, unspecified; J06.9 Acute upper respiratory infection, unspecified

== ENCOUNTER → 2025-10-06 10:24 | Outpatient (BNVA) | payer MEDICARE, SELFPAY | DX: I10 Essential (primary) hypertension (principal); E78.00 Pure hypercholesterolemia, unspecified; M81.0 Age-related osteoporosis without current pathological fracture; R12 Heartburn; M25.551 Pain in right hip; M25.561 Pain in right knee; J30.9 Allergic rhinitis, unspecified; J06.9 Acute upper respiratory infection, unspecified | CPT/HCPCS: 99212 ==